=== PATIENT | male | born 1960 | race Caucasian/White ===

== ENCOUNTER 2019-02-13 08:22 | Outpatient (CLI) | payer MEDICARE, MEDICAID ==
[~2019-02-13] VITALS: Ht 175.3 cm; Wt 90.7 kg
[2019-02-14] MEDS ORDERED: INSU200I4 SQ (10:54)
[2019-02-14] MEDS ORDERED: ATOR40TA70 PO (10:54)
[2019-02-14] MEDS ORDERED: AMLO5TAB9 PO (10:54)
[2019-02-14] MEDS ORDERED: FLUT16SP22 NS (10:54)
[2019-02-14] MEDS ORDERED: MELO15TA39 PO (10:54)
[2019-02-14] MEDS ORDERED: INSU100I14 SQ (10:54)
[2019-02-14] MEDS ORDERED: METF-399 PO (10:54)
[2019-02-14] MEDS ORDERED: TRAZ-190 PO (10:54)
[2019-02-14] MEDS ORDERED: PREG200C PO (10:54)
[2019-02-14] MEDS ORDERED: SILD20TA14 PO (10:54)
[2019-02-14] MEDS ORDERED: CITA20TA9 PO (10:54)
[2019-02-14] MEDS ORDERED: BACL10TA PO (10:54)
[2019-02-14] MEDS ORDERED: LISI-552 PO (10:54)
[2019-02-14] MEDS ORDERED: ASPI-983 PO (10:54)
[2019-02-14] MEDS ORDERED: SPIR25TA5 PO (10:54)
[2019-02-14] MEDS ORDERED: RT-ALBUINH INH (10:54)
[2019-02-14] MEDS ORDERED: CETI10TA20 PO (10:54)
[2019-02-14] MEDS ORDERED: SITA100T12 PO (10:54)
[2019-02-14] MEDS ORDERED: CARV6.252 PO (10:54)
[2019-02-14] MEDS ORDERED: AMOX-358 PO (10:54)
[2019-02-14] MEDS ORDERED: DILT180C84 PO (10:54)
[2019-02-14] MEDS ORDERED: LEVE500T99 PO (12:36)
== END 2019-02-13 11:06 | disposition home or self-care (01) ==
LOC: PREOP 08:22
PROVIDERS: ATTEND Orthopaedic Surgery
DX: Z01.818 Encounter for other preprocedural examination (principal)

== ENCOUNTER 2019-02-17 09:31 | Inpatient (IN) | payer MEDICARE, MEDICAID ==
--- NOTE | 2019-02-14 12:34 | NUR ---
PREOP NURSE SENT OVER A LIST OF MEDICATIONS SHE WENT OVER THE PATIENT WITH. I CALLED [facility] AND HAD A LIST OF RECENTLY FILLED MEDICATIONS FAXED OVER. I THEN CALLED THE PATIENT FOR SOME CLARIFICATIONS. [facility] F[facility]ED: 02-04-19 AUGMENTIN [id number] BID X 14 DAYS #28 02-04-19 VENTOLIN 2 PUFFS Q6H PRN 01-31-19 SPIRONOLACTONE 25MG DAILY #30 01-31-19 DILTIAZEM 24HR ER 180MG DAILY #30 01-31-19 AMLODIPINE 5MG DAILY #30 01-20-19 LISINOPRIL 20MG DAILY #30 01-20-19 METFORMIN 1000MG BID #60 01-20-19 TRAZODONE 100MG HS MAY TAKE ADDITIONAL 1/2 TAB #45 (STATES HE ONLY TAKES 1/2) 01-20-19 CARVEDILOL 6.25MG BID #60 01-20-19 FLONASE (STATES HE USES PRN) 01-20-19 BACLOFEN 10MG TID #90 01-20-19 MELOXICAM 15MG DAILY #30 01-20-19 CITALOPRAM 20MG HS #30 01-20-19 JANUVIA 100MG DAILY #30 01-20-19 LYRICA 200MG Q12H #60 01-07-19 NOVOLOG FLEXPEN 10 UNITS TID AC (STATES HE USES A SLIDING SCALE) 12-31-18 TRESIBA FLEXTOUCH 200 - 50 UNITS HS 11-27-18 LIPITOR 40MG DAILY #90 11-27-18 SILDENAFIL 20MG 1-3 30 MIN PRN OTC MEDS: ASPIRIN 81MG DAILY ZYRTEC 10MG DAILY PRN HE ALSO REPORTS HE TAKES KEPPRA 500MG BID HOWEVER [facility] HAS NEVER F[facility]ED THAT FOR HIM BEFORE. HE STATES HE WAS PRESCRIBED THIS FROM HIS DISCHARGE FROM [place] IN DECEMBER AND HIS PCP WAS SUPPOSED TO HAVE AUTHORIZED REFILLS ON ALL OF THOSE MEDICATIONS HOWEVER WHEN I CALLED HIM HE COULD NOT FINE A BOTTLE FOR THE KEPPRA AT HOME. HE IS GOING TO CONTACT HIS PCP TO GET A NEW SCRIPT. I VERIFIED WITH [facility] THAT THEY DID FILL KEPPRA 500MG BID #60 12-30-18. HE HAS BEEN OUT FOR A LITTLE BIT- I NOTED THIS ON THE MED REC AND IT CAN BE VERIFIED WITH THE PATIENT IF HE GOT A NEW SCRIPT WHEN HE COMES IN. TODAY HE STATES HE LEFT A MESSAGE AND IT IS SUNDAY AFTERNOON SO HE MAY NOT HEAR BACK FROM HIS PCP UNTIL Sunday02-17-19.
[~2019-02-17] VITALS: Ht 175.3 cm; Wt 90.8 kg
[2019-02-17] VITALS (11 sets, daily range): BP systolic 92–129; BP diastolic 61–78
[~2019-02-17 09:31] MED LIST: AMLO5TAB9 PO; AMOX-358 PO; ASPI-983 PO; ATOR40TA70 PO; BACL10TA PO; CARV6.252 PO; CETI10TA20 PO; CITA20TA9 PO; DILT180C84 PO; FLUT16SP22 NS; INSU100I14 SQ; INSU200I4 SQ; LEVE500T99 PO; LISI-552 PO; MELO15TA39 PO; METF-399 PO; PREG200C PO; RT-ALBUINH INH; SILD20TA14 PO; SITA100T12 PO; SPIR25TA5 PO; TRAZ-190 PO
[2019-02-17] MEDS ORDERED: BACITRACIN 100,000 UNIT/NS 1000 ML POUR BOTTLE IR ONE ×2 (10:00)
[2019-02-17] MEDS ORDERED: ceFAZolin 2 GM/50 ML NS 50 ML ONE (10:08)
[2019-02-17] MEDS: LACTATED RINGERS 1,000 ML IV PRN ×4 (10:10→15:46)
[2019-02-17] MEDS ORDERED: ceFAZolin 2 GM/50 ML NS 50 ML IV ONE (10:30)
[2019-02-17] MEDS ORDERED: GENTAMICIN 40 MG/ML 2 ML INJ SDV ONE (10:39)
[2019-02-17] MEDS ORDERED: BACITRACIN OINTMENT 28 GM TUBE ONE (10:39)
[2019-02-17] MEDS ORDERED: BUP/EPI 0.25% 1:200,000 (MARCAINE) 10 ML VIAL IJ ONE (10:39)
[2019-02-17] MEDS ORDERED: VANCOMYCIN 1000 MG/VIAL ONE (10:39)
[2019-02-17] MEDS ORDERED: LIDOCAINE PF 2% 5 ML (XYLOCAINE) VIAL ONE (12:29)
[2019-02-17] MEDS ORDERED: proPOfol 200 MG/20 ML (DIPRIVAN) VIAL IV ONE ×2 (12:29→14:32)
[2019-02-17] MEDS ORDERED: ROCURONIUM 10 MG/ML 5 ML SYRINGE IV ONE (12:29)
[2019-02-17] MEDS ORDERED: SUCCINYLCHOLINE INJ 100 MG/5 ML SYR ONE (12:29)
[2019-02-17] MEDS ORDERED: MIDAZOLAM 2 MG/2 ML (VERSED) VIAL ONE (12:29)
[2019-02-17] MEDS ORDERED: ONDANSETRON 4 MG/2 ML (SDV) Z0FRAN ONE (12:29)
[2019-02-17] MEDS ORDERED: fentaNYL INJECTION 100 MCG/2 ML AMP ONE ×2 (12:29→15:36)
[2019-02-17] MEDS ORDERED: DEXMEDETOMIDINE 200 MCG/2 ML (PRECEDEX) VIAL IV ONE (12:34)
[2019-02-17] MEDS ORDERED: FLUTICASONE NASAL SPRAY (FLONASE) 16 GM BTL NS PRN (12:45)
--- NOTE | 2019-02-17 12:45 | Progress Note-Pre Operative ---
Pre-Operative Progress Note H&P Reviewed The H&P was reviewed, patient examined and no changes noted. Date Seen by Provider: Feb 17, 2019 Time Seen by Provider: 12:45 Date H&P Reviewed: Feb 17, 2019 Time H&P Reviewed: 12:45 Pre-Operative Diagnosis: stenosis EFRAIN HARDING DO Feb 17, 2019 12:45
[2019-02-17] MEDS ORDERED: EPINEPHrine INJECTION 1 MG/ML AMP ONE (13:47)
[2019-02-17] MEDS ORDERED: SEVOFLURANE (ULTANE) 15 ML INHAL SOLN ONE (14:53)
--- NOTE | 2019-02-17 15:10 | Diagnostic Imaging Report ---
INDICATION: Fluoroscopy during lumbar spine surgery. FINDINGS: Fluoroscopy was provided in the OR during lumbar spine posterior instrumented spinal fusion. 32 seconds of fluoroscopic time was utilized. IMPRESSION: Fluoroscopy during lumbar spine surgery. Dictated by: Dictated on workstation # [id number]
[2019-02-17] MEDS ORDERED: METOCLOPRAMIDE INJ 10 MG/2 ML (REGLAN) IV PRN (15:15)
[2019-02-17] MEDS ORDERED: METOCLOPRAMIDE 10 MG (REGLAN) TAB PO PRN (15:15)
[2019-02-17] MEDS ORDERED: morphine INJ 10 MG/ML 1ML (SYR OR VIAL) IVP ONE (15:15)
[2019-02-17] MEDS ORDERED: ONDANSETRON 4 MG/2 ML (SDV) Z0FRAN IVP PRN (15:15)
[2019-02-17] MEDS ORDERED: BISACODYL 10 MG SUPP (DULCOLAX) PR PRN (15:15)
[2019-02-17] MEDS ORDERED: fentaNYL INJECTION 100 MCG/2 ML AMP IVP ONE ×2 (15:15→15:30)
[2019-02-17] MEDS ORDERED: ACETAMINOPHEN 325 MG TABLET PO PRN (15:15)
[2019-02-17] MEDS ORDERED: ONDANSETRON 4 MG/2 ML (SDV) Z0FRAN IV PRN (15:15)
[2019-02-17] MEDS ORDERED: MEPERIDINE (DEMEROL) INJ 50 MG/ML IVP ONE (15:15)
[2019-02-17] MEDS ORDERED: morphine INJ 10 MG/ML 1ML (SYR OR VIAL) ONE (15:20)
[2019-02-17] MEDS ORDERED: RT-ALBUTEROL SULF 2.5 MG/3 ML PRE-MIX VIAL INH PRN (17:15)
[2019-02-17] MEDS: oxyCODONE/APAP 5/325MG (PERCOCET 5) TABLET PO PRN ×2 (17:48→23:13)
[2019-02-17] MEDS: BACLOFEN 10 MG (LIORESAL) TAB PO SCH ×2 (17:59→20:03)
[2019-02-17] MEDS: AUGMENTIN 875 MG TAB (AMOXICILLIN/CLAVULANATE) PO SCH (18:14)
[2019-02-17] MEDS: ceFAZolin INJECTION 1,000 MG in WATER (STERILE) FOR INJECTION 10 ML IV SCH (20:07)
[2019-02-17] MEDS: CARVEDILOL 6.25 MG (COREG) TAB PO SCH (20:08)
[2019-02-17] MEDS: FAMOTIDINE 20 MG (PEPCID) TABLET PO SCH (20:08)
[2019-02-17] MEDS: PREGABALIN 100 MG (LYRICA) CAPSULE PO SCH (20:08)
[2019-02-17] MEDS: LEVETIRACETAM 500 MG (KEPPRA) TAB PO SCH (20:08)
[2019-02-17] MEDS: traZODone 50 MG (DESYREL) TAB PO SCH (20:08)
[2019-02-17] MEDS: HYDROcodone/APAP 5 MG/325 MG (LORTAB) TAB PO PRN (20:28)
--- NOTE | 2019-02-17 20:51 | NUR ---
2049: [facility] HIV NURSE FOR DR MEHDI HALLMAN PT ALLERGY TO [facility] AND FACILITY DOES HAVE HS HOME INSULIN. B/S AT 99 TONIGHT AND MARIS NOT ADMIN ANY HS INSULIN TONIGHT AND MAY RESTART METFORMIN IN AM. PT ALSO HAD NOT URINATED SINCE BEFORE SURGERY AND REFUSED TO USE URINAL OR GO TO BATHROOM. HE REQUESTED A CATHETER. MARIS ORDERED STRAIGHT CATH BLADDER SCAN SHOWED PT HAD 1199 ML OF URINE IN BLADDER. PT WAS ALSO REQUESTED IV PAIN MEDS D/T PO NOT BEING EFFECTIVE. MARIS ORDERED 50 MCG FENTANTYL Q 1 HR PRN SEVERE PAIN. 2100: PT STRAIGHT CATH, TOLERATED WELL, ASEPTIC TECHNIQUE USED, 1700 ML CLEAR, STRAW YELLOW URINE. PAIN RATED AT A 6 AT THIS TIME AND WAS OK WITH PAIN BEING AT THIS LEVEL. PT ADVISED IF HE NEEDS ANY FURTHER PAIN MEDS IT IS AVAILABLE. DISCUSSED WITH PT THAT [facility] ALEX[facility] WANTS TO CONTINUE TO HOLD DIABETIC MEDS AT THIS TIME.
[2019-02-18] VITALS (7 sets, daily range): BP systolic 100–134; BP diastolic 59–79
[2019-02-18] MEDS: fentaNYL INJECTION 100 MCG/2 ML AMP IVP PRN ×4 (01:01→20:22)
[2019-02-18] MEDS: LACTATED RINGERS 1,000 ML IV PRN (02:20)
[2019-02-18] MEDS: ceFAZolin INJECTION 1,000 MG in WATER (STERILE) FOR INJECTION 10 ML IV SCH ×2 (03:07→11:10)
[2019-02-18] MEDS: HYDROcodone/APAP 5 MG/325 MG (LORTAB) TAB PO PRN ×4 (03:07→17:51)
[2019-02-18] MEDS: CYCLOBENZAPRINE 10 MG (FLEXERIL) TAB PO PRN ×3 (03:07→22:04)
--- NOTE | 2019-02-18 03:15 | NUR ---
0100 PT REPORTED BLADDER FULLNESS, ATTEMPTED TO URINATE IN URINAL ON SIDE OF BED UNSUCCESSFULLY. BLADDER SCAN SHOWED >550 ML 0111 RN ATTEMPTED TO CONTACT [facility] REGARDING URINE RETENTION, NO ANSWER, THIS RN LEFT CONTACT INFO IN MESSAGE. 0315 RN ATTEMPTED TO CALL [facility] AGAIN, NO ANSWER. PT CONTINUES TO C/O BLADDER FULLNESS. STRAIGHT CATH ADMIN W/ ASEPTIC TECHNIQUE, 1000 ML OUTPUT.
[2019-02-18] MEDS: MULTIVIT W/MINERALS TAB (THERAGRAN M) PO SCH (06:27)
[2019-02-18] MEDS: AUGMENTIN 875 MG TAB (AMOXICILLIN/CLAVULANATE) PO SCH ×2 (06:27→17:50)
--- NOTE | 2019-02-18 06:40 | Anesthesia-General Post-Op ---
General Patient Condition Mental Status/LOC: Same as Preop Cardiovascular: Satisfactory Nausea/Vomiting: Absent Respiratory: Satisfactory Pain: Controlled Complications: Absent Post Op Complications Complications None Follow Up Care/Instructions Patient Instructions None needed. Anesthesia/Patient Condition Patient Condition Patient is doing well, no complaints, stable vital signs, no apparent adverse anesthesia problems. No complications reported per nursing. SUGAR ZARCO CRNA Feb 18, 2019 06:40
[2019-02-18] MEDS: oxyCODONE/APAP 5/325MG (PERCOCET 5) TABLET PO PRN ×3 (07:33→22:04)
[2019-02-18] MEDS: DILTIAZEM 180 MG (CARDIZEM CD) CAP PO SCH (08:40)
[2019-02-18] MEDS: LEVETIRACETAM 500 MG (KEPPRA) TAB PO SCH ×2 (08:40→20:14)
[2019-02-18] MEDS: PREGABALIN 100 MG (LYRICA) CAPSULE PO SCH ×2 (08:40→20:13)
[2019-02-18] MEDS: CARVEDILOL 6.25 MG (COREG) TAB PO SCH ×2 (08:40→20:13)
[2019-02-18] MEDS: BACLOFEN 10 MG (LIORESAL) TAB PO SCH ×3 (08:40→20:14)
[2019-02-18] MEDS: SPIRONOLACTONE 25 MG (ALDACTONE) TAB PO SCH (08:40)
[2019-02-18] MEDS: LINAGLIPTIN (TRADJENTA) 5 MG TABLET PO SCH (08:41)
[2019-02-18] MEDS: amLODIPine 5 MG (NORVASC) TAB PO SCH (08:41)
[2019-02-18] MEDS: FAMOTIDINE 20 MG (PEPCID) TABLET PO SCH ×2 (08:41→20:14)
[2019-02-18] MEDS: lisINopril 20 MG (PRINIVIL) TABLET PO SCH (08:41)
[2019-02-18] MEDS: BISACODYL 5 MG (DULCOLAX) TABLET PO PRN (08:42)
--- NOTE | 2019-02-18 08:57 | Occupational Therapy Eval ---
OT Evaluation-General/PLF Medical Diagnosis Admission Date Feb 17, 2019 at 09:31 Medical Diagnosis: senosis, fusion L4-5 Onset Date: Feb 17, 2019 Therapy Diagnosis Therapy Diagnosis: decr self care, decr funct mob, decr act stevan, pain, decr strength Height/Weight Height (Feet): 5 Height (Inches): 9.00 Weight (Pounds): 200 Weight (Ounces): 0.0 Precautions Precautions/Isolations: Seizure, Fall Prevention, Standard Precautions Safety Interventions: Bed Exit Alarm Referral Physician: Bryanna Referral Reason: Evaluation/Treatment Medical History Additional Medical History Brain aneurysm surgery, R CTR, spinal stimulator. Cardiac, respiratory, psych hx Current History L4-5 TLIF Reviewed History: Yes ADL-Prior Level of Function Therapy Code Descriptions/Definitions Functional Piatt Measure: 0=Not Assessed/NA 4=Minimal Assistance 1=Total Assistance 5=Supervision or Setup 2=Maximal Assistance 6=Modified Piatt 3=Moderate Assistance 7=Complete Piatt Therapy Quality Codes: 6 Independent with activity with or without an assistive device 5 Patient requires set up or clean up by helper. Patient completes activity by themselves 4 Supervision or touching assist (CGA). [place] provide cues , steadying assist 3 The helper provides less than half the effort to complete the activity 2 The helper provides more than half the effort to complete the activity 1 Dependent. The helper does all the effort to complete an activity 7 Patient refused to complete or attempt activity 9 The patient did not perform the activity before the current illness or injury 88 Not attempted due to Medical conditions or safety concerns Functional Abilities and Goals: Independent: Patient completed the activities by him/herself, with or without an assistive device, with no assistance from a helper. Needed Some Help: Patient needed partial assistance from another person to complete activities. Dependent: A helper completed the activities for the patient. Unknown: Not Applicable: ADL PLOF Comments Pt reported that he has been able to manage his basic self care needs except that he has trouble with shoes and socks and has someone with him when he gets out of the shower. He is disabled OT Current Status Subjective Pt seen in room, in obvious pain and waiting for pain meds from nurse in room. Appearance In obvious pain and with some difficulty answering questions Current Glasses/Contacts: Yes Hand Dominance: Right Upper Extremity ROM R grossly WFL. Pt limited movement L UE because it increased pain in his back Upper Extremity Strength Did not test due to pain ADL-Treatment ADL-Current Pt declined getting out of bed. PT reported that he got up earlier this morning and it took two person assistance. Therapy Code Descriptions/Definitions Functional Piatt Measure: 0=Not Assessed/NA 4=Minimal Assistance 1=Total Assistance 5=Supervision or Setup 2=Maximal Assistance 6=Modified Piatt 3=Moderate Assistance 7=Complete Piatt Therapy Quality Codes: 6 Independent with activity with or without an assistive device 5 Patient requires set up or clean up by helper. Patient completes activity by themselves 4 Supervision or touching assist (CGA). [place] provide cues , steadying assist 3 The helper provides less than half the effort to complete the activity 2 The helper provides more than half the effort to complete the activity 1 Dependent. The helper does all the effort to complete an activity 7 Patient refused to complete or attempt activity 9 The patient did not perform the activity before the current illness or injury 88 Not attempted due to Medical conditions or safety concerns Education OT Patient Education: Purpose of tx/functional activities, Rehab process Teaching Recipient: Patient, Significant Other Teaching Methods: Discussion Response to Teaching: Verbalize Understanding OT Jail Goals [employer]cer Goals Time Frame: Feb 25, 2019 Eating (FIM): 6 Grooming(FIM): 6 Bathing(FIM): 5 Upper Body Dressing(FIM): 6 Lower Body Dressing(FIM): 5 Toileting(FIM): 5 Toilet/Commode Transfer(FIM): 5 Shower Transfer(FIM): 5 Additional Goals: 1-Demonstrate ADL Tasks, 2-Verbalize Understanding, 3- ImproveStrength/Teresa 1=Demonstrate adherence to instructed precautions during ADL tasks. 2=Patient will verbalize/demonstrate understanding of assistive devices/modifications for ADL. 3=Patient will improve strength/tolerance for activity to enable patient to perform ADL's. OT Education/Plan Problem List/Assessment Assessment: Decreased Activ Tolerance, Decreased UE Strength, Dependent Transfers, Impaired Bed Mobility, Impaired Self-Care Skills Pt would benefit from skilled OT to increase his independence in basic self care to allow him to safely return home after lumbar fusion, with decr self care, decr mobility and pain Discharge Recommendations Plan/Recommendations: Continue POC Treatment Plan/Plan of Care Treatment,Training & Education: Yes Patient would benefit from OT for education, treatment and training to promote independence in ADL's, mobility, safety and/or upper extremity function for ADL's. Plan of Care: ADL Retraining, Functional Mobility, UE Funct Exercise/Act Treatment Duration: Feb 25, 2019 Frequency: 5 times per week Estimated Hrs Per Day: .5 hour per day Agreement: Yes Rehab Potential: Fair Time/GCodes Start Time: 08:40 Stop Time: 08:50 Total Time Billed (hr/min): 10 Billed Treatment Time visit, 10 minutes evaluation moderate intensity MARIELA LAWSON OT Feb 18, 2019 08:57
[2019-02-18] MEDS ORDERED: LORATADINE (CLARITIN) 10 MG TAB PO PRN (09:00)
--- NOTE | 2019-02-18 09:36 | Physical Therapy Evaluation ---
PT Evaluation-General Medical Diagnosis Admission Date Feb 17, 2019 at 09:31 Medical Diagnosis: stenosis, fusion L4-5 Onset Date: Feb 17, 2019 Therapy Diagnosis Therapy Diagnosis: debility/weakness Height/Weight Height (Feet): 5 Height (Inches): 9.00 Weight (Pounds): 200 Weight (Ounces): 0.0 Precautions Precautions/Isolations: Seizure, Fall Prevention, Standard Precautions Weight Bear Status Right Lower Extremity: Right Weight Bearing/Tolerated Left Lower Extremity: Left Weight Bearing/Tolerated Referral Physician: Gino Reason for Referral: Evaluation/Treatment Medical History Current History s/p L4-5 fusion Reviewed History: Yes Social History Home: Single Level Current Living Status: Spouse Prior/Core FIM Prior Level of Function Therapy Code Descriptions/Definitions Functional Faber Measure: 0=Not Assessed/NA 4=Minimal Assistance 1=Total Assistance 5=Supervision or Setup 2=Maximal Assistance 6=Modified Faber 3=Moderate Assistance 7=Complete Faber Therapy Quality Codes: 6 Independent with activity with or without an assistive device 5 Patient requires set up or clean up by helper. Patient completes activity by themselves 4 Supervision or touching assist (CGA). Benedict provide cues , steadying assist 3 The helper provides less than half the effort to complete the activity 2 The helper provides more than half the effort to complete the activity 1 Dependent. The helper does all the effort to complete an activity 7 Patient refused to complete or attempt activity 9 The patient did not perform the activity before the current illness or injury 88 Not attempted due to Medical conditions or safety concerns Functional Abilities and Goals: Independent: Patient completed the activities by him/herself, with or without an assistive device, with no assistance from a helper. Needed Some Help: Patient needed partial assistance from another person to complete activities. Dependent: A helper completed the activities for the patient. Unknown: Not Applicable: Bed Mobility: 7 Transfers (B,C,W/C) (FIM): 7 Gait: 7 Indoor Mobility (Ambulation): Independent Prior Devices Use: None PT Evaluation-Current Subjective Patient is yelling in 10/10 LBP with multiple pain medications issued. Pain Numeric Pain Scale: 10-Worst Possible Pain Location: Lower Location Body Site: Back Pain Description: Acute Objective Patient Orientation: Normal For Age Problem Solving: Fair Attachments: Drains, IV ROM/Strength ROM Lower Extremities bilateral LE WFL Strength Lower Extremities 4-/5 grossly bilateral LE Integumentary/Posture Integumentary refer to nursing notes Bowel Incontinence: No Bladder Incontinence: No Posture trunk flexed posture in stand with FWW Neuromuscular (Tone, Coordination, Reflexes) grossly intact Sensory Vision: Wears Glasses Hearing: Functional Hand Dominance: Right Sensation Right Lower Extremit: Intact Sensation Left Lower Extremity: Intact Transfers Therapy Code Descriptions/Definitions Functional Faber Measure: 0=Not Assessed/NA 4=Minimal Assistance 1=Total Assistance 5=Supervision or Setup 2=Maximal Assistance 6=Modified Faber 3=Moderate Assistance 7=Complete Faber Transfers (B, C, W/C) (FIM): 2 Scootin Rollin Supine to/from Sit: 2 Sit to/from Stand: 5 pain limits mobility currently Gait Mode of Locomotion: Walk Anticipated Mode of Locomotion: Walk Gait (FIM): 1 Distance (FIM): 1=up to 49 ft Distance: 5' Gait Level of Assist: 4 Gait Persons Needed: 1 Gait Assistive Device: FWW Comments/Gait Description minimal to no foot clearance due to pain/patient is very agitated with all requests for mobility Balance Sitting Static: Normal Sitting Dynamic: Normal Standing Static: Fair Standing Dynamic: Fair Assessment/Needs 58 y.o. male, will benefit from skilled PT to address functional strength and mobility to improve current LOF to safely return to home with spouse. Patient currently has uncontrolled LBP with multiple pain medications issued. Patient limits mobility due to pain. Rehab Potential: Fair PT Halfway Goals Halfway Goals PT Halfway Goals Time Frame: Mar 01, 2019 Transfers (B,C,W/C) (FIM): 6 Gait (FIM): 2 Gait distance (FIM): 6=088-55 ft Distance: 100' Gait Level of Assist: 5 Gait Assistive Device: FWW PT Plan Problem List Problem List: Activity Tolerance, Gait, Bed Mobility, Other (uncontrolled LBP) Treatment/Plan Treatment Plan: Continue Plan of Care Treatment Plan: Bed Mobility, Education, Functional Activity Teresa, Functional Strength, Gait, Safety, Therapeutic Exercise, Transfers Treatment Duration: Mar 01, 2019 Frequency: 11 times per week Estimated Hrs Per Day: .5 hour per day Safety Risks/Education Patient Education: Disease Process (education on importance of actively moving to prevent possible negative side effects and to promote healing), Safety Issues Teaching Recipient: Patient Teaching Methods: Discussion Response to Teaching: Reinforcement Needed Time/GCodes Time In: 800 Time Out: 818 Total Billed Treatment Time: 18 Total Billed Treatment 1 visit EVModC 18 min MANDI STUBBS PT Feb 18, 2019 09:36
[2019-02-18] MEDS ORDERED: LIDOCAINE UROJET 2% GEL 10 ML PKG TOP ONE ×2 (10:45→21:30)
[2019-02-18] MEDS ORDERED: LIDOCAINE UROJET 2% GEL 10 ML PKG ONE ×2 (10:58→21:13)
--- NOTE | 2019-02-18 12:03 | Progress Note ---
Subjective Time Seen by a Provider: 12:01 Subjective/Events-last exam c/o significant back pain and abdominal pain as well as ble pain. Has had to be straight cathed x 2. No hx of urinary retention on the past. Review of Systems General: No Chills Musculoskeletal: back pain, leg pain Neurological: Numbness; No: Weakness, Change in speech, Confusion Objective Exam Vital Signs Date Time Temp Pulse Resp B/P (MAP) Pulse Ox O2 Delivery O2 Flow Rate FiO2 02/18/19 09:00 Room Air 02/18/19 08:00 37.2 78 22 132/71 92 Room Air 02/18/19 04:00 36.6 69 19 131/79 95 Room Air 02/18/19 00:25 36.4 65 19 134/78 96 Room Air 02/17/19 21:00 Room Air 02/17/19 19:42 36.3 64 20 118/74 98 Room Air 02/17/19 18:35 Room Air 02/17/19 16:59 36.6 50 22 104/67 94 Room Air 02/17/19 16:20 36.3 18 94 Room Air 02/17/19 16:20 Room Air 02/17/19 16:10 18 94 Room Air 02/17/19 16:09 Room Air 02/17/19 16:05 Room Air 02/17/19 16:00 18 98 Room Air 02/17/19 15:55 OxyMask 3 02/17/19 15:50 18 100 OxyMask 6 02/17/19 15:40 OxyMask 6 02/17/19 15:40 18 99 OxyMask 6 02/17/19 15:30 18 97 OxyMask 6 02/17/19 15:25 OxyMask 6 02/17/19 15:20 18 97 OxyMask 6 02/17/19 15:10 36.3 16 99 OxyMask 6 02/17/19 15:10 OxyMask 6 I & O 02/18/19 07:00 Intake Total 4130 ml Output Total 3170 ml Balance 960 ml Capillary Refill : General Appearance: Mild Distress Neck: Non Tender Respiratory: No Accessory Muscle Use, No Respiratory Distress Gastrointestinal: non tender, soft Extremity: Normal Inspection, Normal Range of Motion, Non Tender, No Calf Tenderness Neurologic/Psychiatric: Alert, Oriented x3 Results Lab Laboratory Tests 02/17/19 12:10: Glucometer 103 02/17/19 17:41: Glucometer 84 02/17/19 20:10: Glucometer 99 02/18/19 05:36: Glucometer 97 02/18/19 10:59: Glucometer 139H Microbiology 02/17/19 MRSA Screen - Final, Complete MRSA not isolated Assessment/Plan Assessment/Plan Assess & Plan/Chief Complaint assessment: pod #1 s/p L4-5 [address] plan stat lumbar ct back brace Pt pain control BILL Gastelum Feb 18, 2019 12:03
--- NOTE | 2019-02-18 13:22 | Physical Therapy Progress Note ---
Therapy Progress Note Patient adamantly declined PT secondary to uncontrolled pain. PT attempted to educate patient on importance of participating with PT to help decrease pain,however, patient would not allow PT to talk and became highly verbal and agitated. RN in to issue medication and PT will attempt in 1 hour. 1 visit ref ([id number]) MANDI STUBBS PT Feb 18, 2019 13:22
--- NOTE | 2019-02-18 14:10 | NUR ---
ASSUMED PT CARE
--- NOTE | 2019-02-18 14:34 | Physical Therapy Daily Note ---
PT Daily Note-Current Subjective Patient continues to c/o 03/13 LBP and right LE pain with meds issued 1 hour to PT arrival. Pain Numeric Pain Scale: 10-Worst Possible Pain Location: Lower Location Body Site: Back Pain Description: Acute Mental Status Patient Orientation: Normal For Age Attachments: IV Transfers Therapy Code Descriptions/Definitions Functional Hood Measure: 0=Not Assessed/NA 4=Minimal Assistance 1=Total Assistance 5=Supervision or Setup 2=Maximal Assistance 6=Modified Hood 3=Moderate Assistance 7=Complete Hood Therapy Quality Codes: 6 Independent with activity with or without an assistive device 5 Patient requires set up or clean up by helper. Patient completes activity by themselves 4 Supervision or touching assist (CGA). [place] provide cues , steadying assist 3 The helper provides less than half the effort to complete the activity 2 The helper provides more than half the effort to complete the activity 1 Dependent. The helper does all the effort to complete an activity 7 Patient refused to complete or attempt activity 9 The patient did not perform the activity before the current illness or injury 88 Not attempted due to Medical conditions or safety concerns Transfers (B, C, W/C) (FIM): 2 Scootin Rollin Supine to/from Sit: 2 Sit to/from Stand: 4 Bed to/from Chair: 4 max assist for bed mobility due to pain Weight Bearing Right Lower Extremity: Right Weight Bearing/Tolerated Left Lower Extremity: Left Weight Bearing/Tolerated Gait Training Gait (FIM): 1 Distance (FIM): 1=up to 49 ft Distance: 5 steps Gait Level of Assist: 4 Gait Persons Needed: 1 Gait Assistive Device: FWW minimal foot clearance Assessment Patient up in w/c for CT of lower back due to uncontrolled pain. PT will increase activity as patient tolerates. PT Diamond Sorter Goals [facility] Goals PT [facility] Goals Time Frame: Mar 01, 2019 Transfers (B,C,W/C) (FIM): 6 Gait (FIM): 2 Gait distance (FIM): 8=163-54 ft Distance: 100' Gait Level of Assist: 5 Gait Assistive Device: FWW PT Plan Treatment/Plan Treatment Plan: Continue Plan of Care Treatment Plan: Bed Mobility, Education, Functional Activity Teresa, Functional Strength, Gait, Safety, Therapeutic Exercise, Transfers Treatment Duration: Mar 01, 2019 Frequency: 11 times per week Estimated Hrs Per Day: .5 hour per day Time/GCodes Time In: 1355 Time Out: 1405 Total Billed Treatment Time: 10 Total Billed Treatment 1 visit FA 10 min MANDI STUBBS PT Feb 18, 2019 14:34
--- NOTE | 2019-02-18 14:52 | Diagnostic Imaging Report ---
PROCEDURE: CT lumbar spine without contrast. TECHNIQUE: Multiple contiguous axial images were obtained through the lumbar spine without the use of intravenous contrast. Sagittal and coronal reformations were then performed. Auto Exposure Controls were utilized during the CT exam to meet ALARA standards for radiation dose reduction. INDICATION: Low back pain. Lumbar spine surgery 02/17/2019. COMPARISON: None. FINDINGS: There are 5 lumbar type vertebral bodies. Normal alignment. Vertebral body heights are preserved. There are postoperative findings of bilateral joe and pedicle screw fixation with laminectomy and interbody device at L4-L5. Hardware components appear intact. No evidence of loosening. Scattered locules of gas in the postoperative soft tissues should be postoperative. Poorly characterized hyperattenuation in the left dorsal epidural operative bed at the level of L4 measures approximately 2.2 x 1.7 x 2.1 cm. The thecal sac is not well characterized at this level as well but may be compressed. No other findings suspicious for high-grade spinal canal narrowing on this noncontrast exam. No high-grade neural foraminal narrowing. Mild atherosclerotic calcifications including a normal caliber abdominal aorta. IMPRESSION: 1. Postoperative findings of bilateral joe and pedicle screw fixation with laminectomy and interbody device at L4-L5. 2. Given the limitations of streak artifact from the indwelling hardware, there appears to be a hyperattenuating fluid collection in the left dorsal epidural postoperative soft tissues measuring up to 2.2 cm. This likely results in at least moderate mass effect upon the thecal sac. This may be better characterized with MRI. Dictated by: Dictated on workstation # [id number]
--- NOTE | 2019-02-18 15:14 | Diagnostic Imaging Report ---
INDICATION: Postop lumbar spine surgery. TIME OF EXAM: 02:39 p.m. FINDINGS: Two views of the lumbar spine demonstrate postop changes of posterior instrumented fusion at the L4-L5 level, transfixed by vertical stabilization rods and pedicle screws. Intervertebral device is also seen at this level. Alignment is normal. Vertebral body heights are maintained. Hardware appears intact. A spinal stimulator is noted as well. IMPRESSION: Satisfactory postop changes to the lower lumbar spine. No complicating features are identified. Dictated by: Dictated on workstation # [id number]
--- NOTE | 2019-02-18 16:19 | NUR ---
CALLED CATHERINE THOMPSON AND LEFT MESSAGE ABOUT AMOUNT IN HEMAVAC DRAIN -- AND THAT THE CT LUMBAR DRAFT WS DONE
--- NOTE | 2019-02-18 17:00 | NUR ---
PT TRYING TO URINATE -- REQUESTED PT BE BLDDER SCANNED -- 263ML WAS SHOWN -- WILL CONTINUE TO MONITOR
[2019-02-18] MEDS: TAMSULOSIN 0.4 MG (FLOMAX) CAP PO SCH (17:51)
[2019-02-18] MEDS: traZODone 50 MG (DESYREL) TAB PO SCH (20:13)
--- NOTE | 2019-02-18 22:10 | NUR ---
PT REQUESTED TO NOT BE WOKE UP FOR VITAL SIGNS OR ANY OTHER NEEDS. PT STATES HE HAS NOT SLEPT WELL IN THE LAST 2 DAYS & DOES NOT WANT WOKE IF HE FALLS ASLEEP
[2019-02-19] VITALS (15 sets, daily range): BP systolic 97–133; BP diastolic 59–85
[2019-02-19] MEDS: oxyCODONE/APAP 5/325MG (PERCOCET 5) TABLET PO PRN (00:22)
[2019-02-19] MEDS: LACTATED RINGERS 1,000 ML IV PRN (03:21)
[2019-02-19] MEDS: BISACODYL 5 MG (DULCOLAX) TABLET PO PRN (03:35)
[2019-02-19] MEDS: fentaNYL INJECTION 100 MCG/2 ML AMP IVP PRN (03:35)
[2019-02-19] MEDS ORDERED: LIDOCAINE UROJET 2% GEL 10 ML PKG ONE ×2 (03:44→08:22)
[2019-02-19] MEDS ORDERED: LIDOCAINE UROJET 2% GEL 10 ML PKG TOP ONE (04:00)
[2019-02-19] MEDS: MULTIVIT W/MINERALS TAB (THERAGRAN M) PO SCH (05:33)
[2019-02-19] MEDS: HYDROcodone/APAP 5 MG/325 MG (LORTAB) TAB PO PRN (05:34)
--- NOTE | 2019-02-19 06:59 | NUR ---
0640-catarino reynaga-on floor to see pt. this rn spoke with him about pt in ability to urinate on his own. this rn also spoke with him about pt bs being 245. this rn received order to start pt on novolog ss A. this rn was inform that joyce zaragoza would be putting in orders to pull the hemovac drain, start metformin, & likely increasing the Flomax.
[2019-02-19] MEDS ORDERED: inSUlin ASPART (NovoLOG) 1 UNIT/0.01 ML (CHARGE PER UNIT) ONE (07:24)
[2019-02-19] MEDS: inSUlin ASPART (NovoLOG) 1 UNIT/0.01 ML (CHARGE PER UNIT) SC SCH ×5 (07:34→22:01)
--- NOTE | 2019-02-19 07:36 | NUR ---
this rn received a call from joyce toribio informing me that at this time he will not be changing the flomax dose.
[2019-02-19] MEDS: PREGABALIN 100 MG (LYRICA) CAPSULE PO SCH ×2 (08:19→21:58)
[2019-02-19] MEDS: LEVETIRACETAM 500 MG (KEPPRA) TAB PO SCH ×2 (08:19→21:59)
[2019-02-19] MEDS: LINAGLIPTIN (TRADJENTA) 5 MG TABLET PO SCH (08:19)
[2019-02-19] MEDS: DILTIAZEM 180 MG (CARDIZEM CD) CAP PO SCH (08:19)
[2019-02-19] MEDS: FAMOTIDINE 20 MG (PEPCID) TABLET PO SCH ×2 (08:19→21:59)
[2019-02-19] MEDS: lisINopril 20 MG (PRINIVIL) TABLET PO SCH (08:19)
[2019-02-19] MEDS: BACLOFEN 10 MG (LIORESAL) TAB PO SCH ×3 (08:19→21:59)
[2019-02-19] MEDS: amLODIPine 5 MG (NORVASC) TAB PO SCH (08:19)
[2019-02-19] MEDS: CARVEDILOL 6.25 MG (COREG) TAB PO SCH ×2 (08:19→21:58)
[2019-02-19] MEDS: SPIRONOLACTONE 25 MG (ALDACTONE) TAB PO SCH (08:19)
[2019-02-19] MEDS: metFORMIN 500 MG (GLUCOPHAGE) TAB PO SCH ×2 (08:22→18:29)
--- NOTE | 2019-02-19 08:53 | Progress Note ---
Subjective Date Seen by a Provider: Feb 19, 2019 Time Seen by a Provider: 07:00 Subjective/Events-last exam POD #2 s/p tlif. Pain continues to be severe across the back and in the right thigh. has been unable to urinate. denies saddle parsthesias but admits to hip abduction weakness. no other weakness, has rectal sphincter control. Objective Exam Vital Signs Date Time Temp Pulse Resp B/P (MAP) Pulse Ox O2 Delivery O2 Flow Rate FiO2 02/19/19 07:30 95 Room Air 02/19/19 03:41 37.1 80 20 109/67 (81) 96 Room Air 02/19/19 00:29 36.6 74 20 121/73 (89) 95 Room Air 02/18/19 21:30 Room Air 02/18/19 20:09 80 126/74 (91) 96 Room Air 02/18/19 19:27 37.8 79 20 113/71 (85) 95 Room Air 02/18/19 18:22 37.8 02/18/19 16:21 37.8 81 20 100/67 (78) 95 Room Air 02/18/19 15:30 37.4 02/18/19 14:56 37.4 02/18/19 12:00 37.4 74 18 109/59 (76) 96 Room Air 02/18/19 09:00 Room Air I & O 02/19/19 07:00 Intake Total 1820 ml Output Total 4075 ml Balance -2255 ml Capillary Refill : General Appearance: Mild Distress Gastrointestinal: soft Extremity: Non Tender, No Calf Tenderness, No Pedal Edema Neurologic/Psychiatric: Alert, Oriented x3, No Motor/Sensory Deficits, Other (saddle area and groin SILT) Skin: Normal Color Results Lab Laboratory Tests 02/18/19 10:59: Glucometer 139H 02/18/19 15:56: Glucometer 159H 02/18/19 20:57: Glucometer 203H 02/19/19 05:50: Glucometer 245H Microbiology 02/17/19 MRSA Screen - Final, Complete MRSA not isolated Assessment/Plan Assessment/Plan Assess & Plan/Chief Complaint assessment: pod #2 s/p L4-5 tlif severe back pain urinary retention plan lumbar ct reviewed yesterday with dr caceres patient ist not improving, cant have mri after discussing case again with dr berger we will return to or for wound exploration BILL THOMPSON Feb 19, 2019 08:53
[2019-02-19] MEDS ORDERED: NON-FORMULARY MEDICATION 1 EA EA (Metformin HCl 1,000 MG) PO SCH (09:00)
[2019-02-19] MEDS: oxyCODONE/APAP 10/325MG (PERCOCET 10) TABLET PO PRN ×4 (09:32→22:11)
[2019-02-19] MEDS ORDERED: LACTATED RINGERS 1,000 ML IV PRN ×2 (09:32→16:08)
--- NOTE | 2019-02-19 10:16 | Physical Therapy Progress Note ---
Therapy Progress Note Patient scheduled to have surgery today. Will check back this afternoon. SANAM CORWLEY PT Feb 19, 2019 10:16
[2019-02-19] MEDS ORDERED: ONDANSETRON 4 MG/2 ML (SDV) Z0FRAN IVP PRN ×2 (13:15→16:15)
[2019-02-19] MEDS ORDERED: morphine INJ 10 MG/ML 1ML (SYR OR VIAL) IVP ONE ×2 (13:15→16:15)
--- NOTE | 2019-02-19 13:26 | Occ Therapy Progress Note ---
Therapy Progress Note Pt is scheduled to return to surgery this afternoon per RN. Will continue to follow and attempt therapy as appropriate. DENI CHOI OT Feb 19, 2019 13:26
[2019-02-19] MEDS ORDERED: PATIENT MAY USE OWN MED,SINGLE MED PO SCH (13:30)
--- NOTE | 2019-02-19 15:02 | NUR ---
Pt reports pain after surgery: appliance mechanicdiane Caro offered pastoral support. No spiritual affiliation mentioned this visit.
[2019-02-19] MEDS ORDERED: LIDOCAINE PF 2% 5 ML (XYLOCAINE) VIAL ONE (15:25)
[2019-02-19] MEDS ORDERED: MIDAZOLAM 2 MG/2 ML (VERSED) VIAL ONE (15:25)
[2019-02-19] MEDS ORDERED: proPOfol 200 MG/20 ML (DIPRIVAN) VIAL IV ONE (15:25)
[2019-02-19] MEDS ORDERED: fentaNYL INJECTION 100 MCG/2 ML AMP ONE (15:25)
[2019-02-19] MEDS ORDERED: SEVOFLURANE (ULTANE) 15 ML INHAL SOLN ONE (15:26)
[2019-02-19] MEDS ORDERED: ROCURONIUM 10 MG/ML 5 ML SYRINGE IV ONE ×3 (15:28→16:24)
[2019-02-19] MEDS ORDERED: ceFAZolin INJECTION 2,000 MG ONE (15:40)
[2019-02-19] MEDS ORDERED: SUCCINYLCHOLINE INJ 100 MG/5 ML SYR ONE (15:43)
[2019-02-19] MEDS ORDERED: LIDOCAINE JELLY 2% 6 ML SYRINGE ONE (16:06)
[2019-02-19] MEDS ORDERED: morphine INJ 10 MG/ML 1ML (SYR OR VIAL) ONE (16:08)
[2019-02-19] MEDS ORDERED: VANCOMYCIN 1000 MG/VIAL ONE (16:09)
[2019-02-19] MEDS ORDERED: fentaNYL INJECTION 100 MCG/2 ML AMP IVP ONE (16:15)
[2019-02-19] MEDS ORDERED: MEPERIDINE (DEMEROL) INJ 50 MG/ML IVP ONE (16:15)
[2019-02-19] MEDS ORDERED: BACITRACIN OINTMENT 28 GM TUBE ONE (16:22)
--- NOTE | 2019-02-19 16:22 | OPERATIVE REPORT ---
DATE OF SERVICE: 02/17/2019 SURGEON: Ariel Christian DO MANAGER OF PATIENT: CATHERINE Lopez. This is a medically necessary procedure. Occupational Therapist Aide was necessary for retraction of vital neurovascular structures. Without an behavioral health assistant, the procedure would not be possible. PREOPERATIVE DIAGNOSES: 1. Neuropathic pain syndrome. 2. Lumbar spinal stenosis (foraminal, bony). 3. Neurogenic claudication. POSTOPERATIVE DIAGNOSES: 1. Neuropathic pain syndrome. 2. Lumbar spinal stenosis (foraminal, bony). 3. Neurogenic claudication. PROCEDURES PERFORMED: 1. L4-L5 transforaminal lumbar interbody fusion. 2. Application of titanium interbody cage, L4-L5. 3. Application of posterior instrumentation, L4-L5. 4. Posterior spinal fusion, L4-L5. 5. Use of Allograft for spine. 6. Use of local bone autograft. 7. Complete left facetectomy, L4-L5. COMPLICATIONS: None. SPECIMEN SENT: None. DRAINS PLACED: Subfascial Hemovac. ANESTHESIA: General endotracheal tube anesthesia with local anesthetic. HISTORY OF PRESENT ILLNESS: The patient is a very pleasant 58-year-old gentleman with a history of radiating left lower extremity pain. He had a CT scan demonstrating foraminal stenosis, failed all conservative measures and wished to proceed with operative intervention. OPERATION: The patient was identified by name on wrist band in the preoperative holding area. His operative site was signed, consent was signed. SCDs were placed. Neuro monitoring was hooked up. Antibiotics were started. He was taken to the operating room theater and placed under general endotracheal tube anesthesia and then transferred to the operating room table in the prone position. He was prepped and draped in the usual sterile fashion. A formal timeout was conducted. At this point, a midline lumbar incision was made. Bilateral subperiosteal approach ensued exposing the L4-L5 posterior elements. At this point, I placed pedicle screws using fluoroscopy bilaterally in L4 and L5 and tested these with EMG neuro monitoring. The screws were in good position. AP and lateral x-ray further verified that. At this point, I turned my attention to the complete facetectomy on the left side at L4-L5 and completely decompressed the exiting nerve root. I then retracted the thecal sac medially, exposing the disk space. I performed annulotomy, followed by complete diskectomy. I sized and chose the appropriate titanium interbody cage. I packed with human allograft and I seated it into the midline position. At this point, I placed a joe on the left, placed a joe on the right. I placed set screws, finally tightened those set screws. I irrigated the wound thoroughly with two liters of antibiotic enhanced irrigation. I packed a mixture of human allograft and local bone autograft in the left and right gutter to promote posterior spinal fusion. I placed a deep subfascial Hemovac drain and I closed the wound utilizing 0 Vicryls, followed by 2-0 Vicryls, followed by nick for skin. We applied dressings. I took the patient in the supine position to the PACU where he awoke without incident. He tolerated the procedure well. The plan at this time is to admit the patient for IV antibiotics, IV pain control and postoperative monitoring. We will have him out of bed on postop day #1, discontinue drain and his Fajardo catheter per my protocol. Job ID: [id number] DocumentID: [id number] Dictated Date: 02/19/2019 09:54:31 Tester Armature Or Fields Date: 02/19/2019 16:20:49 Dictated By: ARIEL CHRISTIAN DO
[2019-02-19] MEDS ORDERED: PHENYLEPHRINE INJ 10 MG/ML (FOR DRIP KITS ONLY) ONE (16:29)
[2019-02-19] MEDS ORDERED: ceFAZolin INJECTION 1,000 MG VIAL IV ONE (16:30)
[2019-02-19] MEDS ORDERED: PHENYLEPHRINE 100 MCG/ML 10 ML (ANESTHESIA) SYR ONE (16:30)
[2019-02-19] MEDS ORDERED: ISOFLURANE (FORANE) 15 ML/15 MIN INHALATION ONE (16:36)
--- NOTE | 2019-02-19 17:50 | NUR ---
PT BACK TO ROOM VIA BED ACCOMPANIED BY COMPUTER NETWORK SPECIALIST, BEDSIDE REPORT RECEIVED. INCSION TO BACK NOTED, DRSG DRY AND INTACT WITH NO DRAINAGE. PT ALERT AND STATES PAIN IS DECREASED FROM EARLIER TODAY AT THIS TIME. STATES SOMETHING FEELS BETTER. PT FAMILY AT BEDSIDE, WILL CONTINUE TO MONITOR.
[2019-02-19] MEDS: TAMSULOSIN 0.4 MG (FLOMAX) CAP PO SCH (18:29)
--- NOTE | 2019-02-19 19:09 | NUR ---
DR. FRAUSTO NOTIFIED OF CONSULT BY Patricia MANUEL RN
[2019-02-19] MEDS: traZODone 50 MG (DESYREL) TAB PO SCH (21:59)
[2019-02-20] VITALS (7 sets, daily range): BP systolic 92–114; BP diastolic 51–66
[2019-02-20] MEDS: oxyCODONE/APAP 10/325MG (PERCOCET 10) TABLET PO PRN ×4 (02:16→14:13)
[2019-02-20] MEDS: inSUlin ASPART (NovoLOG) 1 UNIT/0.01 ML (CHARGE PER UNIT) SC SCH ×4 (06:09→21:40)
[2019-02-20] MEDS: MULTIVIT W/MINERALS TAB (THERAGRAN M) PO SCH (06:15)
[2019-02-20] MEDS: metFORMIN 500 MG (GLUCOPHAGE) TAB PO SCH ×2 (06:15→16:24)
--- NOTE | 2019-02-20 07:14 | NUR ---
TAKEN DOWN FOR JAYSHREE SCAN -- WILL ASSESS PT WHEN SHE IS TO FLOOR Addendum: 02/20/19 at 0753 by JESSICA DIGGS RN ABOVE NOTE IN ERROR -- WRONG PT
[2019-02-20] MEDS ORDERED: NICOTINE 21 MG (NICODERM) PATCH ONE (08:12)
[2019-02-20] MEDS: FAMOTIDINE 20 MG (PEPCID) TABLET PO SCH ×2 (08:14→20:35)
[2019-02-20] MEDS: PREGABALIN 100 MG (LYRICA) CAPSULE PO SCH ×2 (08:14→20:36)
[2019-02-20] MEDS: LEVETIRACETAM 500 MG (KEPPRA) TAB PO SCH ×2 (08:14→20:35)
[2019-02-20] MEDS: DILTIAZEM 180 MG (CARDIZEM CD) CAP PO SCH (08:14)
[2019-02-20] MEDS: LINAGLIPTIN (TRADJENTA) 5 MG TABLET PO SCH (08:14)
[2019-02-20] MEDS: BACLOFEN 10 MG (LIORESAL) TAB PO SCH ×3 (08:14→20:35)
[2019-02-20] MEDS: SPIRONOLACTONE 25 MG (ALDACTONE) TAB PO SCH (08:15)
[2019-02-20] MEDS: CARVEDILOL 6.25 MG (COREG) TAB PO SCH ×2 (08:15→20:36)
[2019-02-20] MEDS: amLODIPine 5 MG (NORVASC) TAB PO SCH (08:15)
[2019-02-20] MEDS: lisINopril 20 MG (PRINIVIL) TABLET PO SCH (08:16)
[2019-02-20] MEDS: NICOTINE 21 MG (NICODERM) PATCH TD SCH (08:21)
--- NOTE | 2019-02-20 11:39 | Occ Therapy Progress Note ---
Therapy Progress Note Pt sitting on toilet, stated that he had just gotten a suppository and wanted stay where he was for a while. Will come back to check on pt. JESSICA FOSTER Feb 20, 2019 11:39
--- NOTE | 2019-02-20 11:44 | Physical Therapy Daily Note ---
PT Daily Note-Current Subjective Pain is much improved per patient report. 6/10 LBP. Pain Numeric Pain Scale: 6 Location: Lower Location Body Site: Back Pain Description: Acute Mental Status Patient Orientation: Normal For Age Attachments: Fajardo Catheter Transfers Therapy Code Descriptions/Definitions Functional [place] Measure: 0=Not Assessed/NA 4=Minimal Assistance 1=Total Assistance 5=Supervision or Setup 2=Maximal Assistance 6=Modified [place] 3=Moderate Assistance 7=Complete [place] Therapy Quality Codes: 6 Independent with activity with or without an assistive device 5 Patient requires set up or clean up by helper. Patient completes activity by themselves 4 Supervision or touching assist (CGA). [place] provide cues , steadying assist 3 The helper provides less than half the effort to complete the activity 2 The helper provides more than half the effort to complete the activity 1 Dependent. The helper does all the effort to complete an activity 7 Patient refused to complete or attempt activity 9 The patient did not perform the activity before the current illness or injury 88 Not attempted due to Medical conditions or safety concerns Transfers (B, C, W/C) (FIM): 3 Scootin Rollin Supine to/from Sit: 3 Sit to/from Stand: 4 Bed to/from Chair: 4 Weight Bearing Right Lower Extremity: Right Weight Bearing/Tolerated Left Lower Extremity: Left Weight Bearing/Tolerated Gait Training Gait (FIM): 4 Distance (FIM): 3=150 ft Distance: 150' Gait Level of Assist: 4 Gait Persons Needed: 1 Gait Assistive Device: FWW CGA for safety/safe and functional gait sequence with FWW Assessment Patient returned to room and requested toilet use. Patient much improved and motivated with pain control and physical mobility. PT Nursing Home Goals Nursing Home Goals PT Erector Operator Goals Time Frame: Mar 01, 2019 Transfers (B,C,W/C) (FIM): 6 Gait (FIM): 2 Gait distance (FIM): 6=347-13 ft Distance: 100' Gait Level of Assist: 5 Gait Assistive Device: FWW PT Plan Treatment/Plan Treatment Plan: Continue Plan of Care Treatment Plan: Bed Mobility, Education, Functional Activity Teresa, Functional Strength, Gait, Safety, Therapeutic Exercise, Transfers Treatment Duration: Mar 01, 2019 Frequency: 11 times per week Estimated Hrs Per Day: .5 hour per day Time/GCodes Time In: 1050 Time Out: 1105 Total Billed Treatment Time: 15 Total Billed Treatment 1 visit GT 15 min MANDI STUBBS PT Feb 20, 2019 11:44
--- NOTE | 2019-02-20 13:34 | Occupational Ther Daily Note ---
OT Current Status-Daily Note Subjective Pt sitting on toilet upon OT arrival. Pt agrees to therapy. Mental Status/Objective Therapy Code Descriptions/Definitions Functional [place] Measure: 0=Not Assessed/NA 4=Minimal Assistance 1=Total Assistance 5=Supervision or Setup 2=Maximal Assistance 6=Modified [place] 3=Moderate Assistance 7=Complete [place] ADL-Treatment Introduced LE dressing equipment to pt. Tried explaining to pt the different ways to use the AE but pt would change the subject multiple times. Pt stated that he will not use those at home. Pts will assist him. Will continue to educate pt on lower body dressing strategies during hospital stay. At end of treatment pt was ready to transfer off of toilet though requested those girls that were supposed to get him off of the toilet, refused assistance from CLARKE. Nrsg in room after therapy. All needs met in room. Education OT Patient Education: Use of adapted equipment Teaching Recipient: Patient Teaching Methods: Demonstration, Discussion Response to Teaching: Reinforcement Needed OT Short Term Goals Short Term Goals 1=Demonstrate adherence to instructed precautions during ADL tasks. 2=Patient will verbalize/demonstrate understanding of assistive devices/modif ications for ADL. 3=Patient will improve strength/tolerance for activity to enable patient to perform ADL's. OT Parlor Chaperone Goals Parlor Chaperone Goals Time Frame: Feb 25, 2019 Eating (FIM): 6 Grooming(FIM): 6 Bathing(FIM): 5 Upper Body Dressing(FIM): 6 Lower Body Dressing(FIM): 5 Toileting(FIM): 5 Toilet/Commode Transfer(FIM): 5 Shower Transfer(FIM): 5 Additional Goals: 1-Demonstrate ADL Tasks, 2-Verbalize Understanding, 3- ImproveStrength/Teresa 1=Demonstrate adherence to instructed precautions during ADL tasks. 2=Patient will verbalize/demonstrate understanding of assistive devices/modifications for ADL. 3=Patient will improve strength/tolerance for activity to enable patient to perform ADL's. OT Education/Plan Problem List/Assessment Assessment: Impaired Self-Care Skills Pt would benefit from skilled OT to increase his independence in basic self care to allow him to safely return home after lumbar fusion, with decr self care, decr mobility and pain Discharge Recommendations Plan/Recommendations: Continue POC Treatment Plan/Plan of Care Patient would benefit from OT for education, treatment and training to promote independence in ADL's, mobility, safety and/or upper extremity function for ADL's. Plan of Care: ADL Retraining, Functional Mobility, UE Funct Exercise/Act Treatment Duration: Feb 25, 2019 Frequency: 5 times per week Estimated Hrs Per Day: .5 hour per day Agreement: Yes Rehab Potential: Fair Time/GCodes Start Time: 12:45 Stop Time: 12:53 Total Time Billed (hr/min): 8 Billed Treatment Time 1 visit- ADL 1 (8 min) JESSICA FOSETR Feb 20, 2019 13:34
--- NOTE | 2019-02-20 13:36 | CONSULTATION REPORT ---
DATE OF SERVICE: 02/20/2019 ATTENDING PHYSICIAN: Ariel Christian DO SUMMARY: A 58-year-old white man recovering from back surgeries, is having catheter in, apparently failed trial of voiding. He was started on Flomax about two days ago. He has had some mild voiding symptoms in the past, never seen a urologist, was not on any medication for the prostate or the bladder. He is tolerating Flomax well. Catheter is draining clear urine. Examination of the prostate was deferred at this time. IMPRESSION: Urinary retention, BPH and/or neurogenic bladder. PLAN: Tomorrow, after three days on the Flomax, we will give him trial of voiding. We may add Urecholine if needed and manage accordingly. This plan was fully explained to the patient and his . Job ID: [id number] DocumentID: [id number] Dictated Date: 02/20/2019 10:28:54 Conservator Artifacts Date: 02/20/2019 13:35:40 Dictated By: MARTHA FRAUSTO MD
--- NOTE | 2019-02-20 13:39 | Physical Therapy Progress Note ---
Therapy Progress Note Patient is up with family in hallway ambulating PRN. Patient and spouse voice no concern at this time. PT will return in a.m. to ensure patient continues to increase mobility. Patient is currently under control and spouse is able to don back brace without difficulty. 1 no treatment. MANDI STUBBS PT Feb 20, 2019 13:39
[2019-02-20] MEDS: TAMSULOSIN 0.4 MG (FLOMAX) CAP PO SCH (17:18)
--- NOTE | 2019-02-20 19:53 | Progress Note ---
Subjective Date Seen by a Provider: Feb 20, 2019 Time Seen by a Provider: 17:00 Subjective/Events-last exam POD #4 s.p tlif. pod #1 s/p wound exploration. Improved today, catherter placed and urology consulted, plan to d/c cath tomorrow. C/o abdominal distension. Has oral bowel regimen ordered. Denies nausea or vomiting. Review of Systems General: No Chills Gastrointestinal: No: Nausea, Vomiting Musculoskeletal: back pain, leg pain Neurological: No: Weakness, Numbness, Change in speech, Confusion Objective Exam Vital Signs Date Time Temp Pulse Resp B/P (MAP) Pulse Ox O2 Delivery O2 Flow Rate FiO2 02/20/19 19:19 36.9 90 20 114/66 (82) 96 Room Air 02/20/19 18:31 Room Air 02/20/19 15:43 36.6 71 20 104/57 (73) 92 Room Air 02/20/19 12:00 36.6 89 20 102/59 (73) 95 Room Air 02/20/19 09:00 Room Air 02/20/19 08:52 83 18 92/51 (65) 96 Room Air 02/20/19 08:00 83 92/51 (65) 02/20/19 07:48 98 Nasal Cannula 2.00 02/20/19 04:00 37.0 80 20 108/58 (75) 96 Nasal Cannula 2.00 02/20/19 02:10 36.8 84 20 110/62 (78) 96 Nasal Cannula 2.00 02/20/19 00:00 20 Nasal Cannula 2.00 02/19/19 21:55 80 20 126/62 (83) 96 Nasal Cannula 2.00 02/19/19 21:00 Nasal Cannula 2.00 02/19/19 20:17 104/68 (80) I & O 02/20/19 07:00 Intake Total 1740 ml Output Total 2860 ml Balance -1120 ml Capillary Refill : General Appearance: No Apparent Distress Gastrointestinal: non tender, distended Extremity: Non Tender, No Calf Tenderness Neurologic/Psychiatric: Alert, Oriented x3, No Motor/Sensory Deficits Skin: Normal Color Results Lab Laboratory Tests 02/19/19 21:25: Glucometer 191H 02/20/19 05:53: Glucometer 148H 02/20/19 11:19: Glucometer 186H 02/20/19 15:43: Glucometer 150H Microbiology 02/17/19 MRSA Screen - Final, Complete MRSA not isolated Assessment/Plan Assessment/Plan Assess & Plan/Chief Complaint assessment: pod # 3s/p L4-5 tlif pos #1 s/p wound exploration plan continue care bowel regimen appreciate urology consult back brace when oob BILL THOMPSON Feb 20, 2019 19:53
[2019-02-20] MEDS ORDERED: MAGNESIUM CITRATE 300 ML BTL PO NR (20:15)
[2019-02-20] MEDS: traZODone 50 MG (DESYREL) TAB PO SCH (20:35)
[2019-02-20] MEDS: fentaNYL INJECTION 100 MCG/2 ML AMP IVP PRN (20:38)
[2019-02-20] MEDS: POLYETHYLENE GLYCOL 17 GM (MIRALAX) PACK PO SCH (21:40)
--- NOTE | 2019-02-20 22:19 | NUR ---
pt has c/o constipation. and upon assessment lumbar drg was noted to have mod amt of bloody drainage . order recieved from joyce toribio to give mag citrate per pt request and to change the drg.. drain drg positioned around h vac drain site and nick and drain site covered with telfa island drg. pt has had a med bm at this time
[2019-02-21] VITALS: BP 145/66
[2019-02-21] MEDS ORDERED: fentaNYL INJECTION 100 MCG/2 ML AMP IM PRN (03:15)
[2019-02-21 04:00] VITALS: BP 125/74
[2019-02-21] MEDS: inSUlin ASPART (NovoLOG) 1 UNIT/0.01 ML (CHARGE PER UNIT) SC SCH ×4 (05:36→20:31)
[2019-02-21] MEDS: MULTIVIT W/MINERALS TAB (THERAGRAN M) PO SCH (05:36)
[2019-02-21] MEDS: metFORMIN 500 MG (GLUCOPHAGE) TAB PO SCH ×2 (05:36→17:14)
[2019-02-21 06:00] LABS: HEMOGLOBIN 10.9 G/DL (13.3-17.7)
[2019-02-21 06:25] LABS: BUN/CREATININE RATIO 15; CALCIUM 9.7 MG/DL (8.5-10.1); CARBON DIOXIDE 29 MMOL/L (21-32); CHLORIDE 97 MMOL/L (98-107); CREATININE SERUM 0.86 MG/DL (0.60-1.30); GFR ESTIMATED > 60; GLUCOSE 164 MG/DL (70-105); POTASSIUM 5.8 MMOL/L (3.6-5.0); SODIUM 135 MMOL/L (135-145)
--- NOTE | 2019-02-21 06:26 | Progress Note ---
Subjective Date Seen by a Provider: Feb 21, 2019 Time Seen by a Provider: 06:20 Subjective/Events-last exam POD #4, s/p L4-5 TLIF, PSF, POD #2 s/p wound exploration Patient states that his back pain is much better Complains of abdominal distention and pain Denies lower extremity pain Small BM last HS Review of Systems General: No Chills, No Night Sweats HEENT: No Head Aches Pulmonary: No Cough Cardiovascular: No: Chest Pain Gastrointestinal: Abdominal Pain, Constipation; No: Nausea, Vomiting Genitourinary: Retention Musculoskeletal: back pain; No: leg pain Neurological: No: Weakness, Numbness, Change in speech, Confusion Objective Exam Vital Signs Date Time Temp Pulse Resp B/P (MAP) Pulse Ox O2 Delivery O2 Flow Rate FiO2 02/21/19 04:00 37.0 84 18 125/74 (91) 98 Room Air 02/21/19 00:00 36.5 86 20 145/66 (92) 99 Room Air 02/20/19 21:00 96 Room Air 2.00 02/20/19 19:19 36.9 90 20 114/66 (82) 96 Room Air 02/20/19 18:31 Room Air 02/20/19 15:43 36.6 71 20 104/57 (73) 92 Room Air 02/20/19 12:00 36.6 89 20 102/59 (73) 95 Room Air 02/20/19 09:00 Room Air 02/20/19 08:52 83 18 92/51 (65) 96 Room Air 02/20/19 08:00 83 92/51 (65) 02/20/19 07:48 98 Nasal Cannula 2.00 I & O 02/21/19 07:00 Intake Total 2610 ml Output Total 6025 ml Balance -3415 ml Capillary Refill : General Appearance: No Apparent Distress Neck: Normal Inspection, Non Tender Respiratory: Chest Non Tender, No Accessory Muscle Use Cardiovascular: Regular Rate, Rhythm, No Edema, Normal Peripheral Pulses Gastrointestinal: distended; No guarding, No rebound; tenderness Extremity: Non Tender, No Calf Tenderness Neurologic/Psychiatric: Alert, Oriented x3, No Motor/Sensory Deficits, Normal Mood/Affect, supplies packer II-XII Norm as Tested Skin: Other (Dressing CDI) Results Lab Laboratory Tests 02/20/19 11:19: Glucometer 186H 02/20/19 15:43: Glucometer 150H 02/20/19 20:16: Glucometer 140H 02/21/19 05:23: Glucometer 173H 02/21/19 05:25: 02/21/19 05:40: Hemoglobin 10.9L, Hematocrit 33L Microbiology 02/17/19 MRSA Screen - Final, Complete MRSA not isolated Assessment/Plan Assessment/Plan Assess & Plan/Chief Complaint Lumbar stenosis S/P L4-5 TLIF, PSF Urinary retention- will dc al today Constipation- repeat Magnesium Citrate, obtain KUB, DC fentanyl Monitor drain output Encourage patient to use narcotics judiciously, and the fact that repeat anesthesia and narcotic use are contributing to constipation JOSE DALAL Feb 21, 2019 06:25
[2019-02-21] MEDS ORDERED: MAGNESIUM CITRATE 300 ML BTL PO NR (06:57)
[2019-02-21] MEDS: oxyCODONE/APAP 10/325MG (PERCOCET 10) TABLET PO PRN ×4 (07:40→20:51)
[2019-02-21 08:00] VITALS: BP 120/71
--- NOTE | 2019-02-21 08:25 | OPERATIVE REPORT ---
DATE OF SERVICE: 02/19/2019 SURGEON: Ariel Christian DO BODY WELDER: CATHERINE Zepeda This is a medically necessary procedure. Construction Producer was necessary for retraction of vital neurovascular structures. Without an assistant commissioner, the procedure would not be possible. PREOPERATIVE DIAGNOSES: 1. Postoperative seroma. 2. Lumbar radiculopathy. 3. Urinary retention. POSTOPERATIVE DIAGNOSES: 1. Postoperative seroma. 2. Lumbar radiculopathy. 3. Urinary retention. PROCEDURE PERFORMED Exploration of lumbar wound. COMPLICATIONS: None. SPECIMEN SENT: None. DRAINS PLACED: Hemovac. ANESTHESIA: General endotracheal tube anesthesia. ESTIMATED BLOOD LOSS: Minimal. HISTORY OF PRESENT ILLNESS: The patient is a very pleasant 58-year-old patient of mine, who had undergone instrumented lumbar fusion on 02/17. His postoperative course was complicated by severe urinary retention, he was unable to void and required straight cathing. He also had significant lower extremity weakness, some numbness in his legs and we were unable to obtain an MRI due to a clip in his brain. CT scan demonstrated suspected fluid accumulation. Therefore, we decided it was the safest thing to do to explore his wound in search of any neurologic compression, i.e., hematoma. He understood the risks and benefits of this and wished to proceed. OPERATION: The patient was identified by name on wrist band in the preoperative holding area. His operative site was signed, consent was signed. SCDs were placed. Neuro monitoring was hooked up and antibiotics were started. He was taken to the operating room theater and placed under general endotracheal tube anesthesia and then transferred to the operating room table in the prone position. He was prepped and draped in the usual sterile fashion. Formal timeout was conducted. Rosibel were removed. Sutures were removed and the wound was opened up. We found no evidence of neurologic compression. There was some expected blood clot, but it was not compressing on the nerves or thecal sac. I thoroughly irrigated the wound, reevaluated my decompression and there was no neurologic compression due to seroma, hematoma or residual stenosis. Therefore, I did place a subfascial Hemovac drain and I closed the wound in my usual layered fashion utilizing 0 Vicryl followed by 2-0 Vicryl followed by rosibel for skin. We applied dressings, took the patient in the supine position where he awoke without incident. PLAN: At this time, is to consult urology. We will place a Fajardo catheter. We will place him on a Flomax and we will await recommendations per urology. Job ID: [id number] DocumentID: [id number] Dictated Date: 02/21/2019 07:31:03 Assistant Site Manager Date: 02/21/2019 08:24:56 Dictated By: ARIEL CHRISTIAN DO
[2019-02-21] MEDS: PREGABALIN 100 MG (LYRICA) CAPSULE PO SCH ×2 (08:40→20:52)
[2019-02-21] MEDS: CARVEDILOL 6.25 MG (COREG) TAB PO SCH ×2 (08:40→20:51)
[2019-02-21] MEDS: DILTIAZEM 180 MG (CARDIZEM CD) CAP PO SCH (08:40)
[2019-02-21] MEDS: LINAGLIPTIN (TRADJENTA) 5 MG TABLET PO SCH (08:40)
[2019-02-21] MEDS: LEVETIRACETAM 500 MG (KEPPRA) TAB PO SCH ×2 (08:40→20:51)
[2019-02-21] MEDS: BACLOFEN 10 MG (LIORESAL) TAB PO SCH ×3 (08:40→20:52)
[2019-02-21] MEDS: lisINopril 20 MG (PRINIVIL) TABLET PO SCH (08:40)
[2019-02-21] MEDS: SPIRONOLACTONE 25 MG (ALDACTONE) TAB PO SCH (08:40)
[2019-02-21] MEDS: FAMOTIDINE 20 MG (PEPCID) TABLET PO SCH ×2 (08:40→20:52)
[2019-02-21] MEDS: amLODIPine 5 MG (NORVASC) TAB PO SCH (08:40)
[2019-02-21] MEDS: NICOTINE PATCH REMOVAL TP SCH (08:41)
[2019-02-21] MEDS: NICOTINE 21 MG (NICODERM) PATCH TD SCH (08:41)
--- NOTE | 2019-02-21 09:34 | Physical Therapy Daily Note ---
PT Daily Note-Current Subjective Patient agrees to PT. Pain Numeric Pain Scale: 7 Location: Lower Location Body Site: Back Pain Description: Acute Mental Status Patient Orientation: Normal For Age Attachments: Drains, Fajardo Catheter Transfers Therapy Code Descriptions/Definitions Functional [place] Measure: 0=Not Assessed/NA 4=Minimal Assistance 1=Total Assistance 5=Supervision or Setup 2=Maximal Assistance 6=Modified [place] 3=Moderate Assistance 7=Complete [place] Therapy Quality Codes: 6 Independent with activity with or without an assistive device 5 Patient requires set up or clean up by helper. Patient completes activity by themselves 4 Supervision or touching assist (CGA). [place] provide cues , steadying assist 3 The helper provides less than half the effort to complete the activity 2 The helper provides more than half the effort to complete the activity 1 Dependent. The helper does all the effort to complete an activity 7 Patient refused to complete or attempt activity 9 The patient did not perform the activity before the current illness or injury 88 Not attempted due to Medical conditions or safety concerns Transfers (B, C, W/C) (FIM): 5 Scootin Rollin Supine to/from Sit: 5 Sit to/from Stand: 5 Bed to/from Chair: 5 Weight Bearing Right Lower Extremity: Right Weight Bearing/Tolerated Left Lower Extremity: Left Weight Bearing/Tolerated Gait Training Gait (FIM): 5 Distance (FIM): 3=150 ft Distance: >400' Gait Level of Assist: 5 Gait Assistive Device: FWW slow, steady, functional gait sequence Exercises Supine Ex: Ankle pumps, Quad Set, Heel Slides Supine Reps: 15 Seated Therapy Exercises: Ankle pumps, Long arc quads Seated Reps: 15 Assessment Patient progressing with treatment plan and is up in recliner with needs met. PT educated patient on importance of increasing his independence with bathroom use and mobility. Patient voices understanding. PT Superintendent Nonselling Goals Superintendent Nonselling Goals PT Superintendent Nonselling Goals Time Frame: Mar 01, 2019 Transfers (B,C,W/C) (FIM): 6 Gait (FIM): 2 Gait distance (FIM): 2=948-52 ft Distance: 100' Gait Level of Assist: 5 Gait Assistive Device: FWW PT Plan Treatment/Plan Treatment Plan: Continue Plan of Care Treatment Plan: Bed Mobility, Education, Functional Activity Teresa, Functional Strength, Gait, Safety, Therapeutic Exercise, Transfers Treatment Duration: Mar 01, 2019 Frequency: 11 times per week Estimated Hrs Per Day: .5 hour per day Time/GCodes Time In: 858 Time Out: 921 Total Billed Treatment Time: 23 Total Billed Treatment 1 visit FA 14 min EX 9 min MANDI STUBBS PT Feb 21, 2019 09:34
--- NOTE | 2019-02-21 09:44 | Progress Note - Urology ---
Progress Note-Urology Progress Notes/Assess & Plan Progress/Assessment & Plan TOV TODAY Final Diagnosis RETENTION MARTHA FRAUSTO MD Feb 21, 2019 09:44
--- NOTE | 2019-02-21 09:49 | Occupational Ther Daily Note ---
OT Current Status-Daily Note Subjective Pt seen in room, up in recliner after PT. No pain mentioned Appearance Alert, cooperative Mental Status/Objective Therapy Code Descriptions/Definitions Functional [place] Measure: 0=Not Assessed/NA 4=Minimal Assistance 1=Total Assistance 5=Supervision or Setup 2=Maximal Assistance 6=Modified [place] 3=Moderate Assistance 7=Complete [place] ADL-Treatment Pt reported he has been having some difficulty with not having bowel movement. Will have Fajardo catheter pulld today and them more interested in ADLs. He got up from recliner with SBA, FWW but struggled at midpoint. Walked SBA, FWW to bathroom. transferred to [facility] over toile with increased time, cues for hand placement to control descent onto toilet, managed clothing with SBA. Pt left up on toilet, call light present, nursing notified, all needs met. Toilet/Commode Transfer (FIM): 5 Education OT Patient Education: Progress toward Goal/Update tx plan, Purpose of tx/functional activities, Transfer techniques Teaching Recipient: Patient Teaching Methods: Discussion Response to Teaching: Verbalize Understanding, Return Demonstration OT Short Term Goals Short Term Goals 1=Demonstrate adherence to instructed precautions during ADL tasks. 2=Patient will verbalize/demonstrate understanding of assistive devices/modifications for ADL. 3=Patient will improve strength/tolerance for activity to enable patient to perform ADL's. OT Mcfp Goals Mcfp Goals Time Frame: Feb 25, 2019 Eating (FIM): 6 Grooming(FIM): 6 Bathing(FIM): 5 Upper Body Dressing(FIM): 6 Lower Body Dressing(FIM): 5 Toileting(FIM): 5 Toilet/Commode Transfer(FIM): 5 Shower Transfer(FIM): 5 Additional Goals: 1-Demonstrate ADL Tasks, 2-Verbalize Understanding, 3- ImproveStrength/Teresa 1=Demonstrate adherence to instructed precautions during ADL tasks. 2=Patient will verbalize/demonstrate understanding of assistive devices/modifications for ADL. 3=Patient will improve strength/tolerance for activity to enable patient to perform ADL's. OT Education/Plan Problem List/Assessment Pt would benefit from skilled OT to increase his independence in basic self care to allow him to safely return home after lumbar fusion, with decr self care, decr mobility and pain Discharge Recommendations Plan/Recommendations: Continue POC Treatment Plan/Plan of Care Patient would benefit from OT for education, treatment and training to promote independence in ADL's, mobility, safety and/or upper extremity function for ADL's. Plan of Care: ADL Retraining, Functional Mobility, UE Funct Exercise/Act Treatment Duration: Feb 25, 2019 Frequency: 5 times per week Estimated Hrs Per Day: .5 hour per day Agreement: Yes Rehab Potential: Fair Time/GCodes Start Time: 09:15 Stop Time: 09:30 Total Time Billed (hr/min): 15 Billed Treatment Time visit, 15 minutes ADL MARIELA LAWSON OT Feb 21, 2019 09:49
--- NOTE | 2019-02-21 10:10 | NUR ---
VIDAL REMOVED WITHOUT DIFFICULTY, LARGE BROWN STOOL
[2019-02-21 12:00] VITALS: BP 106/63
--- NOTE | 2019-02-21 13:29 | Physical Therapy Daily Note ---
PT Daily Note-Current Subjective Patient on toilet having BM. Pain Numeric Pain Scale: 5-Moderate Pain Location: Left, Lower Location Body Site: Back Pain Description: Pressure Mental Status Patient Orientation: Normal For Age Transfers Therapy Code Descriptions/Definitions Functional [place] Measure: 0=Not Assessed/NA 4=Minimal Assistance 1=Total Assistance 5=Supervision or Setup 2=Maximal Assistance 6=Modified [place] 3=Moderate Assistance 7=Complete [place] Therapy Quality Codes: 6 Independent with activity with or without an assistive device 5 Patient requires set up or clean up by helper. Patient completes activity by themselves 4 Supervision or touching assist (CGA). [place] provide cues , steadying assist 3 The helper provides less than half the effort to complete the activity 2 The helper provides more than half the effort to complete the activity 1 Dependent. The helper does all the effort to complete an activity 7 Patient refused to complete or attempt activity 9 The patient did not perform the activity before the current illness or injury 88 Not attempted due to Medical conditions or safety concerns Transfers (B, C, W/C) (FIM): 6 Scootin Rollin Supine to/from Sit: 6 Sit to/from Stand: 6 Bed to/from Chair: 6 Weight Bearing Right Lower Extremity: Right Weight Bearing/Tolerated Left Lower Extremity: Left Weight Bearing/Tolerated Gait Training Gait (FIM): 6 Distance (FIM): 3=150 ft Distance: 400' Gait Level of Assist: 6 Gait Assistive Device: FWW slow, antalgic, functional gait sequence. Assessment Patient returned to bed with needs met. PT to continue with POC. PT Application Infrastructure Engineer Goals Long-Term Goals PT Application Infrastructure Engineer Goals Time Frame: Mar 01, 2019 Transfers (B,C,W/C) (FIM): 6 Gait (FIM): 2 Gait distance (FIM): 6=733-59 ft Distance: 100' Gait Level of Assist: 5 Gait Assistive Device: FWW PT Plan Treatment/Plan Treatment Plan: Continue Plan of Care Treatment Plan: Bed Mobility, Education, Functional Activity Teresa, Functional Strength, Gait, Safety, Therapeutic Exercise, Transfers Treatment Duration: Mar 01, 2019 Frequency: 11 times per week Estimated Hrs Per Day: .5 hour per day Time/GCodes Time In: 1306 Time Out: 1318 Total Billed Treatment Time: 12 Total Billed Treatment 1 visit FA 12 min MANDI STUBBS PT Feb 21, 2019 13:29
--- NOTE | 2019-02-21 14:00 | NUR ---
DRESSING COMING OFF BACK INCISION, DRESSING CHANGED, HERLINDA WITHOUT REDNESS OR SWELLING, SMALL AMOUNT BLOODY DRAINAGE, DRAIN INTACT, 10ML FROM DRAIN THIS SHIFT.
--- NOTE | 2019-02-21 14:14 | Diagnostic Imaging Report ---
INDICATION: Abdominal distention in lumbar surgery. TIME OF EXAM: 1:44 PM FINDINGS: 2 views lumbar spine demonstrate normal curvature and alignment. There are postop changes of posterior instrumented fusion with vertical stabilization rods and pedicle screws transfixing L4-L5 level. There are midline posterior skin nick. A drain overlies the posterior tissues. Spinal stimulator is in place. Bowel gas pattern does show some eknh-hv-fncretat gaseous distention to the colon, perhaps owing to ileus. Small bowel is not distended. No wall thickening is seen. IMPRESSION: 1. Postop changes lumbar spine. 2. Mdkj-tt-rxjeexny gaseous distention to the right and transverse colon perhaps owing to ileus. No other abnormality is detected. Dictated by: Dictated on workstation # [id number]
[2019-02-21 16:00] VITALS: BP 104/69
[2019-02-21] MEDS ORDERED: LIDOCAINE UROJET 2% GEL 10 ML PKG ONE (17:09)
--- NOTE | 2019-02-21 17:30 | NUR ---
UNABLE TO URINATE, BLADDER SCAN SHOW 989, STRAIGHT CATH #15 CATH DONE WITH UROJET, 900 ML PIEDAD COLOR URINE, DR AHN NOTIFIED AND ORDERS GIVEN FOR URECHOLINE 25MG.
[2019-02-21] MEDS: TAMSULOSIN 0.4 MG (FLOMAX) CAP PO SCH (17:47)
--- NOTE | 2019-02-21 18:13 | NUR ---
PATIENT C/O HAVING NUMBNESS IN GROIN AND HIP AREA, ZOHAIB DALAL NOTIFIED
[2019-02-21 19:36] VITALS: BP 116/73
[2019-02-21] MEDS: BETHANECHOL 25 MG (URECHOLINE) TAB PO SCH (20:51)
[2019-02-21] MEDS: POLYETHYLENE GLYCOL 17 GM (MIRALAX) PACK PO SCH (21:11)
[2019-02-21] MEDS: traZODone 50 MG (DESYREL) TAB PO SCH (21:11)
[2019-02-22 00:55] VITALS: BP 102/62
[2019-02-22] MEDS: oxyCODONE/APAP 10/325MG (PERCOCET 10) TABLET PO PRN ×4 (04:05→21:32)
[2019-02-22 04:42] VITALS: BP 110/70
[2019-02-22] MEDS: inSUlin ASPART (NovoLOG) 1 UNIT/0.01 ML (CHARGE PER UNIT) SC SCH ×4 (05:47→20:52)
[2019-02-22] MEDS: metFORMIN 500 MG (GLUCOPHAGE) TAB PO SCH ×2 (06:39→17:10)
[2019-02-22] MEDS: BETHANECHOL 25 MG (URECHOLINE) TAB PO SCH ×5 (06:39→21:29)
[2019-02-22] MEDS: MULTIVIT W/MINERALS TAB (THERAGRAN M) PO SCH (06:39)
[2019-02-22 08:00] VITALS: BP 115/70
[2019-02-22] MEDS: LINAGLIPTIN (TRADJENTA) 5 MG TABLET PO SCH (08:51)
[2019-02-22] MEDS: lisINopril 20 MG (PRINIVIL) TABLET PO SCH (08:51)
[2019-02-22] MEDS: DILTIAZEM 180 MG (CARDIZEM CD) CAP PO SCH (08:51)
[2019-02-22] MEDS: CARVEDILOL 6.25 MG (COREG) TAB PO SCH ×2 (08:51→21:22)
[2019-02-22] MEDS: FAMOTIDINE 20 MG (PEPCID) TABLET PO SCH ×2 (08:51→21:22)
[2019-02-22] MEDS: LEVETIRACETAM 500 MG (KEPPRA) TAB PO SCH ×2 (08:51→21:23)
[2019-02-22] MEDS: NICOTINE 21 MG (NICODERM) PATCH TD SCH (08:52)
[2019-02-22] MEDS: SPIRONOLACTONE 25 MG (ALDACTONE) TAB PO SCH (08:52)
[2019-02-22] MEDS: PREGABALIN 100 MG (LYRICA) CAPSULE PO SCH ×2 (08:52→21:22)
[2019-02-22] MEDS: BACLOFEN 10 MG (LIORESAL) TAB PO SCH ×3 (08:52→21:23)
[2019-02-22] MEDS: amLODIPine 5 MG (NORVASC) TAB PO SCH (08:52)
[2019-02-22] MEDS: NICOTINE PATCH REMOVAL TP SCH (08:52)
--- NOTE | 2019-02-22 09:42 | Progress Note - Urology ---
Progress Note-Urology Progress Notes/Assess & Plan Progress/Assessment & Plan FAILED TOV YESTERDAY, STARTED ON URECHOLINE. TOLERATED WELL. TOV AGAIN TODAY AND PLAN PER ORDERS MARTHA FRAUSTO MD Feb 22, 2019 09:42
--- NOTE | 2019-02-22 10:05 | Physical Therapy Daily Note ---
PT Daily Note-Current Subjective Patient agrees to PT. Pain Numeric Pain Scale: 5-Moderate Pain Location: Left, Lower Location Body Site: Hip Pain Description: Pressure Mental Status Patient Orientation: Normal For Age Transfers Therapy Code Descriptions/Definitions Functional [place] Measure: 0=Not Assessed/NA 4=Minimal Assistance 1=Total Assistance 5=Supervision or Setup 2=Maximal Assistance 6=Modified [place] 3=Moderate Assistance 7=Complete [place] Therapy Quality Codes: 6 Independent with activity with or without an assistive device 5 Patient requires set up or clean up by helper. Patient completes activity by themselves 4 Supervision or touching assist (CGA). [place] provide cues , steadying assist 3 The helper provides less than half the effort to complete the activity 2 The helper provides more than half the effort to complete the activity 1 Dependent. The helper does all the effort to complete an activity 7 Patient refused to complete or attempt activity 9 The patient did not perform the activity before the current illness or injury 88 Not attempted due to Medical conditions or safety concerns Transfers (B, C, W/C) (FIM): 6 Scootin Rollin Supine to/from Sit: 6 Sit to/from Stand: 6 Bed to/from Chair: 6 Weight Bearing Right Lower Extremity: Right Weight Bearing/Tolerated Left Lower Extremity: Left Weight Bearing/Tolerated Gait Training Gait (FIM): 6 Distance (FIM): 3=150 ft Distance: 275' x 2 Gait Level of Assist: 6 Gait Assistive Device: FWW slow, antalgic Stair Training Stair Training: Handrails/: 1 handrail, uses walker Stairs (FIM): 2 #of Steps: 2 Stairs: Pattern: Step to Level of Assist: 5 Assessment Patient dons back brace independently. Patient progressing with treatment plan and is up PRN in hallway ambulating. PT Order Desk Clerk Goals Shelter Goals PT Order Desk Clerk Goals Time Frame: Mar 01, 2019 Transfers (B,C,W/C) (FIM): 6 Gait (FIM): 2 Gait distance (FIM): 9=060-46 ft Distance: 100' Gait Level of Assist: 5 Gait Assistive Device: FWW PT Plan Treatment/Plan Treatment Plan: Continue Plan of Care Treatment Plan: Bed Mobility, Education, Functional Activity Teresa, Functional Strength, Gait, Safety, Therapeutic Exercise, Transfers Treatment Duration: Mar 01, 2019 Frequency: 11 times per week Estimated Hrs Per Day: .5 hour per day Time/GCodes Time In: 905 Time Out: 918 Total Billed Treatment Time: 13 Total Billed Treatment 1 visit FA 13 min MANDI STUBBS PT Feb 22, 2019 10:05
[2019-02-22 12:00] VITALS: BP 107/61
[2019-02-22] MEDS: CYCLOBENZAPRINE 10 MG (FLEXERIL) TAB PO PRN (12:23)
[2019-02-22 16:00] VITALS: BP 120/83
[2019-02-22] MEDS: TAMSULOSIN 0.4 MG (FLOMAX) CAP PO SCH (17:10)
[2019-02-22] MEDS ORDERED: LIDOCAINE UROJET 2% GEL 10 ML PKG ONE (17:50)
--- NOTE | 2019-02-22 18:43 | NUR ---
Patient able to void 425 ml urine at 1700; patient bladder scanned, PVR 600, patient dinner arrived, patient ate dinner then voided 500 ml urine. PVR 475 with bladder scan. Fajardo catheter inserted with urojet, 475 ml urine after placement of Fajardo. Medications changed in EMAR per physician order.
[2019-02-22] MEDS: POLYETHYLENE GLYCOL 17 GM (MIRALAX) PACK PO SCH (21:21)
[2019-02-22] MEDS: traZODone 50 MG (DESYREL) TAB PO SCH (21:22)
[2019-02-23 00:26] VITALS: BP 117/76
[2019-02-23] MEDS: oxyCODONE/APAP 10/325MG (PERCOCET 10) TABLET PO PRN ×4 (01:53→18:03)
[2019-02-23] MEDS: BETHANECHOL 25 MG (URECHOLINE) TAB PO SCH ×3 (06:12→13:25)
[2019-02-23] MEDS: MULTIVIT W/MINERALS TAB (THERAGRAN M) PO SCH (06:12)
[2019-02-23] MEDS: metFORMIN 500 MG (GLUCOPHAGE) TAB PO SCH (06:12)
[2019-02-23] MEDS: inSUlin ASPART (NovoLOG) 1 UNIT/0.01 ML (CHARGE PER UNIT) SC SCH ×2 (06:13→11:33)
[2019-02-23 07:58] VITALS: BP 126/72
[2019-02-23] MEDS: PREGABALIN 100 MG (LYRICA) CAPSULE PO SCH (08:20)
[2019-02-23] MEDS: DILTIAZEM 180 MG (CARDIZEM CD) CAP PO SCH (08:21)
[2019-02-23] MEDS: CARVEDILOL 6.25 MG (COREG) TAB PO SCH (08:21)
[2019-02-23] MEDS: LEVETIRACETAM 500 MG (KEPPRA) TAB PO SCH (08:21)
[2019-02-23] MEDS: amLODIPine 5 MG (NORVASC) TAB PO SCH (08:21)
[2019-02-23] MEDS: NICOTINE 21 MG (NICODERM) PATCH TD SCH (08:21)
[2019-02-23] MEDS: SPIRONOLACTONE 25 MG (ALDACTONE) TAB PO SCH (08:21)
[2019-02-23] MEDS: FAMOTIDINE 20 MG (PEPCID) TABLET PO SCH (08:21)
[2019-02-23] MEDS: lisINopril 20 MG (PRINIVIL) TABLET PO SCH (08:21)
[2019-02-23] MEDS: LINAGLIPTIN (TRADJENTA) 5 MG TABLET PO SCH (08:21)
[2019-02-23] MEDS: BACLOFEN 10 MG (LIORESAL) TAB PO SCH ×2 (08:21→13:25)
[2019-02-23] MEDS: NICOTINE PATCH REMOVAL TP SCH (08:22)
--- NOTE | 2019-02-23 10:00 | NUR ---
Patient up to bathroom with staff. Patient refused to wear back brace at this time. Staff educated patient on benefits of wearing brace.
--- NOTE | 2019-02-23 10:23 | Progress Note - Urology ---
Progress Note-Urology Progress Notes/Assess & Plan Progress/Assessment & Plan VOIDING ON OWN BUT PVR 550. TOLERATES MEDS WELL. PLAN PER ORDERS Final Diagnosis RETENTION (RESOLVING) MARTHA FRAUSTO MD Feb 23, 2019 10:23
--- NOTE | 2019-02-23 11:07 | Progress Note ---
Subjective Date Seen by a Provider: Feb 22, 2019 Time Seen by a Provider: 15:00 Subjective/Events-last exam KIM. Doing well. BM this AM. Improving abdominal discomfort. Still c/o some R hip flexion weakness. Fajardo pulled this AM, awaiting attempted mictration. Objective Exam Vital Signs Date Time Temp Pulse Resp B/P (MAP) Pulse Ox O2 Delivery O2 Flow Rate FiO2 02/23/19 07:58 36.9 68 18 126/72 (90) 100 Room Air 02/23/19 07:11 90 Room Air 02/23/19 00:26 36.3 66 18 117/76 (90) 93 Room Air 02/22/19 21:00 Room Air 02/22/19 20:06 Room Air 02/22/19 16:00 37.6 81 18 120/83 (95) 97 Room Air 02/22/19 12:00 37.8 79 20 107/61 (76) 97 Room Air I & O 02/23/19 07:00 Intake Total 7100 ml Output Total 6025 ml Balance 1075 ml Capillary Refill : General Appearance: No Apparent Distress Extremity: Other (4/5 right hip flexion, wound CDI, hemovac disctontinued, dressings CDI) Results Lab Laboratory Tests 02/22/19 11:29: Glucometer 80 02/22/19 16:31: Glucometer 187H 02/22/19 20:46: Glucometer 145H 02/23/19 05:50: Glucometer 119H Microbiology 02/17/19 MRSA Screen - Final, Complete MRSA not isolated Assessment/Plan Assessment/Plan Assess & Plan/Chief Complaint ASSESSMENT: POD 3 s/p exploration lumbar wound urinary retention PLAN: await urology recommendations regarding urinary retention OOB with brace stable from lumbar perspective EFRAIN HARDING DO Feb 23, 2019 11:07
[2019-02-23] MEDS ORDERED: TAMS0.4C98 PO (17:06)
[2019-02-23] MEDS ORDERED: BETH25TA11 PO (17:06)
[2019-02-23] MEDS ORDERED: OXYC1TAB12 PO (17:06)
--- NOTE | 2019-02-23 17:14 | D/C HH Face to Face Order ---
D/C Face to Face Orders Reconcile Patient Problems Problems Reviewed?: Yes Instructions for Patient Via Linh Sococo, Patient Instructions/FollowUp: follow up with Dr Westbrook 2 weeks, Dr Christian in 2 weeks Physician to follow Patient: Pietro/Gino Discharge Diet for Home: ADA Diet Patient Problems: s/p lumbar fusion urinary retention Patient Data-Allergies,Ht & Wt Patient Allergies: Coded Allergies: insulin detemir (Verified Allergy, Unknown, Hives, 02/13/19) Height (Feet): 5 Height (Inches): 9.00 Weight (Pounds): 200 Weight (Ounces): 0.0 Home Health Need/Face to Face Date of Face to Face: Feb 23, 2019 Clinical Findings: Pain with ambulation, Other-list in note urinary retention I have seen Pt [id number]: Yes Discharged To: Home Diagnosis/Conditions: s/p lumbar fusion urinary retnetion Patient is Homebound due to: Pain w/ambulation Homebound Status Due to the above stated illness, injury or surgical procedure (medical condition or diagnosis) and associated clinical findings, the patient is homebound because of his/her inability to leave home except with aid of a supportive device and/or person AND leaving the home requires a considerable and taxing effort or is medically contraindicated. Pt req the following assistanc: Walker Home Health Nursing Orders Home Health Services Order: Nursing Services straigth cath post void and check adn record post residual void volume lumbar surgical incision care and changes Q 72 hours as needed Home Health Infusion Therapy Line Start Date: Feb 17, 2019 Certify Stmt I certify that this patient is under my care and that I, a nurse practitioner or a physician; a assistant executive housekeeper working with me, had a face to face encounter that - meets the physician face to face encounter requirements with this patient as dated. BILL THOMPSON Feb 23, 2019 17:13
--- NOTE | 2019-02-23 17:17 | Discharge Summary ---
Diagnosis/Chief Complaint Date of Admission Feb 17, 2019 at 09:31 Date of Discharge Discharge Date: Feb 23, 2019 Admission Diagnosis Admission Diagnosis lumbar stenosis radiculopathy Discharge Diagnosis same Reason Hospital Visit lumbar fusion Discharge Summary Hospital Course Hospital Course Chapito was admitted for lumbar fusion. The procedure went well but his post operative course was complicated by pain and urinary retention requiring return to OR for wound exploration. There was no compressive pathology on exploration of the wound. Catheter was placed and urology was consulted. His condition improved and by POD #6 he was stable and dismissed home with home health. Labs Laboratory Tests 02/20/19 20:16: Glucometer 140H 02/21/19 05:23: Glucometer 173H 02/21/19 05:25: Potassium Level 5.8H, Chloride Level 97L, Glucose Level 164H 02/21/19 05:40: Hemoglobin 10.9L, Hematocrit 33L 02/21/19 10:55: Glucometer 182H 02/21/19 15:43: Glucometer 120H 02/21/19 20:24: Glucometer 155H 02/22/19 04:40: 02/22/19 11:29: 02/22/19 16:31: Glucometer 187H 02/22/19 20:46: Glucometer 145H 02/23/19 05:50: Glucometer 119H 02/23/19 10:56: Procedures None. Discharge Physical Examination Allergies: Coded Allergies: insulin detemir (Verified Allergy, Unknown, Hives, 02/13/19) Vitals & I&Os Vital Signs Date Time Temp Pulse Resp B/P (MAP) Pulse Ox O2 Delivery O2 Flow Rate FiO2 02/23/19 09:00 Room Air 02/23/19 07:58 36.9 68 18 126/72 (90) 100 02/20/19 21:00 2.00 General Appearance: Alert, Oriented X3, Cooperative, No Acute Distress Neuro: Normal Gait, Normal Speech, Strength at 5/5 X4 Ext Psych/Mental Status: Mental Status NL Discharge Home Medications Reviewed and agree with Discharge Medication list on patient's Discharge Instruction sheet Instructions to Patient/Family Please see electronic discharge instructions given to patient. BILL THOMPSON Feb 23, 2019 17:17
--- NOTE | 2019-02-28 16:16 | Physician Query Clarification ---
PQ-Uncertain Diagnosis Admission/Discharge Admission Date: Feb 17, 2019 at 09:31 Discharge Date: Feb 23, 2019 at 18:10 The medical record reflects the following clinical scenario: History/Risk Factors: lumbar surgery Clinical Findings: CT showed possible fluid collection Treatment: Explore lumbar wound Question: Is postop seroma a clinically valid diagnosis? postop seroma was documented in the 02/21 OP report as post op diagnosis, but body of report seems to rule it out Please document a response in Progress Note or Discharge Summary. 1. Yes, clinically valid, condition resolved. 2. No, condition ruled out. 3. Other, with explanation of clinical findings. 4. Undetermined, no explanation for clinical findings. PHYSICIAN RESPONSE Diagnosis clinically valid: Yes, Conditon resolved Please remember a lack of response to the above will prompt a phone page by CDI/Coding staff. In responding to this query, please exercise your independent professional j udgment. The purpose of this communication is to more accurately reflect the complexity of your patients condition. The fact that a question is asked does not imply that any particular answer is desired or expected. Thank you for your timely response to this clarification. Requestors name: [ ] Phone # [ ] THIS PHYSICIAN QUERY FORM IS A PERMANENT PART OF THE MEDICAL RECORD ARNALDO ORTEGA Feb 28, 2019 16:16 EFRAIN HARDING DO Mar 03, 2019 07:58
== END 2019-02-23 18:10 | disposition home health service (06) | DRG 454 ==
LOC: 4TH 09:31 → SURG 09:32 → EDSTATUS 13:45 → 4TH 16:30
PROVIDERS: ADMIT Orthopaedic Surgery; ATTEND Orthopaedic Surgery
PROC: 0SG0071 Fusion of Lumbar Vertebral Joint with Autologous Tissue Substitute, Posterior Approach, Posterior Column, Open Approach (ICD-10-PCS; 2019-02-17)
PROC: 0ST20ZZ Resection of Lumbar Vertebral Disc, Open Approach (ICD-10-PCS; 2019-02-17)
PROC: 01NB0ZZ Release Lumbar Nerve, Open Approach (ICD-10-PCS; 2019-02-17)
PROC: 0SG00AJ Fusion of Lumbar Vertebral Joint with Interbody Fusion Device, Posterior Approach, Anterior Column, Open Approach (ICD-10-PCS; principal; 2019-02-17 12:45)
PROC: 0SJ00ZZ Inspection of Lumbar Vertebral Joint, Open Approach (ICD-10-PCS; 2019-02-21)
DX: M48.062 Spinal stenosis, lumbar region with neurogenic claudication (principal); M96.842 Postprocedural seroma of a musculoskeletal structure following a musculoskeletal system procedure; M51.36 Other intervertebral disc degeneration, lumbar region; R33.9 Retention of urine, unspecified; N40.0 Benign prostatic hyperplasia without lower urinary tract symptoms; N31.9 Neuromuscular dysfunction of bladder, unspecified; I10 Essential (primary) hypertension; I25.10 Atherosclerotic heart disease of native coronary artery without angina pectoris; I25.2 Old myocardial infarction; E11.40 Type 2 diabetes mellitus with diabetic neuropathy, unspecified; J45.909 Unspecified asthma, uncomplicated; K59.00 Constipation, unspecified; R56.9 Unspecified convulsions; E78.00 Pure hypercholesterolemia, unspecified; F17.210 Nicotine dependence, cigarettes, uncomplicated; F41.9 Anxiety disorder, unspecified; F32.9 Major depressive disorder, single episode, unspecified; Z95.5 Presence of coronary angioplasty implant and graft; Z86.79 Personal history of other diseases of the circulatory system; Z79.4 Long term (current) use of insulin
CPT/HCPCS: 36415; 72100; 72131; 74018; 80048; 82962; 85014; 85018; 86850; 86900; 86901; 87081; 94640; 94664; 94760

== ENCOUNTER → 2019-04-08 | Outpatient (CLI) | payer MEDICARE, MEDICAID ==
[~2019-04-08] MED LIST changes: +BETH25TA11 PO; +OXYC1TAB12 PO; +TAMS0.4C98 PO
== END ==
LOC: WOUNDCARE 12:19
PROVIDERS: ATTEND Surgery
DX: L98.492 Non-pressure chronic ulcer of skin of other sites with fat layer exposed (principal); S31.000A Unspecified open wound of lower back and pelvis without penetration into retroperitoneum, initial encounter; E11.622 Type 2 diabetes mellitus with other skin ulcer; T65.222A Toxic effect of tobacco cigarettes, intentional self-harm, initial encounter; F17.218 Nicotine dependence, cigarettes, with other nicotine-induced disorders

== ENCOUNTER → 2019-04-22 | Outpatient (CLI) | payer MEDICARE, MEDICAID | LOC: WOUNDCARE 12:53 | PROVIDERS: ATTEND Surgery | DX: E11.622 Type 2 diabetes mellitus with other skin ulcer (principal); L98.492 Non-pressure chronic ulcer of skin of other sites with fat layer exposed; S31.000A Unspecified open wound of lower back and pelvis without penetration into retroperitoneum, initial encounter; T65.222A Toxic effect of tobacco cigarettes, intentional self-harm, initial encounter; F17.218 Nicotine dependence, cigarettes, with other nicotine-induced disorders | CPT/HCPCS: 99212 ==